=== PATIENT | female | born 1950 | race Caucasian/White ===

== ENCOUNTER → 2016-05-21 | Outpatient (CLI) | payer BC ==
--- NOTE | 2016-05-21 08:46 | CTL ---
EXAMINATION TYPE: CT Low Dose Lung DATE OF EXAM ORDERED: 05/21/2016 8:17 AM HISTORY: 65-year-old female smoker, cough. Lung cancer screening CT DLP: 55.[address] CTDI: 1.7 mGy Automated exposure control for dose reduction was used. SCREENING VISIT: Baseline COMPARISON: Correlation radiographs 05/03/2016 TECHNIQUE: Low dose computed tomography scan was performed through the chest at 1 mm thick sections a nd reconstructed images in the coronal plane at [address] DIAGNOSTIC QUALITY: Satisfactory FINDINGS: Heart is normal size without pericardial effusion. Aorta is normal caliber with conventional arch vessel branching anatomy. A few nonenlarged mediastinal lymph nodes are present measuring up to 6 mm. No thoracic lymphadenopat hy by CT size criteria. Evaluation of the lungs shows mild diffuse bronchial wall thickening and mild centrilobular emphysema . There is biapical pleural parenchymal scarring. Some patchy atelectasis or scarring at the anterior r ight midlung. Additional strandy atelectasis at the posterior lung bases. Additional focal area of s ubpleural groundglass in the lateral left midlung, axial image 109, measures 1.3 cm and has a nonmass like appearance. No consolidation or pleural effusion. No suspicious pulmonary nodule or mass. There is low-density thickening of the left adrenal gland suggesting adrenal hyperplasia. Small hiata l hernia. Bones: No osseous destructive process. IMPRESSION: 1. Lung RADS 2 - benign appearance or behavior -- a less than 2 cm area of groundglass in the lateral left midlung probably a small infectious/inflammatory focus. 2. COPD with mild emphysema. 3. Small hiatal hernia. RECOMMENDATION: 1. Continue annual screening with low-dose CT in 12 months. 2. Smoking cessation.
== END | disposition home or self-care (01) ==
LOC: RADCTMAIN 07:49
PROVIDERS: ATTEND Family Medicine
DX: Z12.2 Encounter for screening for malignant neoplasm of respiratory organs (principal); Z87.891 Personal history of nicotine dependence; J44.9 Chronic obstructive pulmonary disease, unspecified; K44.9 Diaphragmatic hernia without obstruction or gangrene

== ENCOUNTER → 2016-07-23 | Outpatient (CLI) | payer BC | LOC: MMGSC 14:36 | PROVIDERS: ATTEND Family Medicine | DX: N39.0 Urinary tract infection, site not specified (principal) | CPT/HCPCS: 87077; 87086; 87186 ==

== ENCOUNTER 2017-04-14 09:08 | Day surgery (SDC) | payer BC ==
[~2017-04-14 09:08] MED LIST: LACTATED RINGERS 1,000 ML IV SCH
[2017-04-14 09:32] VITALS: RESP 16; TEMP 97.9
[2017-04-14] MEDS ORDERED: LIDOCAINE 1% 20 ML VIAL (10MG/ML) FOR IV START INTRADERMA ONE (09:38)
[2017-04-14] MEDS ORDERED: PROPOFOL 10 MG/ML 20 ML VIAL IV ONE (10:24)
--- NOTE | 2017-04-14 10:45 | P.PCN ---
Date of Procedure: 04/14/17 Procedure(s) Performed: BRIEF HISTORY: Patient is a 66-year-old pleasant white female, scheduled for an elective colonoscopy as a part of screening for colorectal neoplasia. She was recently noted to have a positive cologard test. PROCEDURE PERFORMED: Colonoscopy. PREOPERATIVE DIAGNOSIS: Screening for colon cancer IV sedation per Anesthesia. PROCEDURE: After informed consent was obtained, the patient, was brought into the endoscopy unit. IV sedation was administered by Anesthesia under continuous monitoring. Digital rectal examination was normal. Initially the Olympus CF- 160 flexible video colonoscope was then inserted in the rectum, gradually advanced into the cecum without any difficulty. Careful examination was performed as the scope was gradually being withdrawn. Ileocecal valve and the appendiceal orifice were visualized and appeared normal. Prep was excellent. Mucosa of the cecum, ascending colon, transverse colon, descending colon, sigmoid colon, and rectum appeared normal. Retroflexion was performed in the rectum and small internal hemorrhoids were seen. The patient tolerated the procedure well. IMPRESSION: Normal-appearing colon from rectum to cecum with no evidence of colorectal neoplasia. Small internal Hemorrhoids. RECOMMENDATIONS: Findings of this examination were discussed with the patient as well as her family. She was advised to have a repeat screening colonoscopy in 10 years..
[2017-04-14 11:30] VITALS: BP 122/70; PULSE 79
== END 2017-04-14 11:33 | disposition home or self-care (01) ==
LOC: ORWHC2ENDO 09:08
PROVIDERS: ATTEND Internal Medicine Gastroenterology
DX: Z12.11 Encounter for screening for malignant neoplasm of colon (principal); K64.8 Other hemorrhoids; J44.9 Chronic obstructive pulmonary disease, unspecified; Z79.1 Long term (current) use of non-steroidal anti-inflammatories (NSAID); Z79.51 Long term (current) use of inhaled steroids; Z79.899 Other long term (current) drug therapy; Z88.2 Allergy status to sulfonamides; F17.210 Nicotine dependence, cigarettes, uncomplicated
CPT/HCPCS: J2704; G0121; 45378

== ENCOUNTER → 2020-07-15 | Outpatient (CLI) | payer MEDICARE ==
[2020-07-15 07:34] VITALS: BP 174/79; PULSE 85; RESP 18; TEMP 98
--- NOTE | 2020-07-15 08:22 | P.GSHP ---
History of Present Illness H&P Date: 07/15/20 Chief Complaint: Left breast invasive ductal carcinoma Yissel is a 69-year-old white female seen in consultation for Dr. Ulloa regarding an ultrasound-guided core biopsy of the left breast which was positive for invasive ductal carcinoma. The lesion is approximately 1.2 cm in size. It is ER/LA positive and HER-2 negative. Yissel had a computed tomography scan done for surveillance secondary to the fact that she smokes 1 pack per day for 57 years. On the computed tomography scan an incidental finding of a lesion in the left breast was noted. She does not feel any lumps masses or nodules in either breast. The patient subsequently had a bilateral mammogram performed which revealed a lesion in the 2 o'clock position of the left breast. An ultrasound core biopsy was performed which was positive for invasive ductal carcinoma. Her last bilateral mammogram had been in approximately 2017. The patient is not complaining of any pain in her breast. She is not complaining of any nipple discharge or skin changes. She has not had any recent trauma or infection in the breast. No other lesions of concern were identified on the chest CT. The patient is noted to have an area in the left lung field which has been noted since 2017 and being followed. The patient does state approximately 50 years ago after attempting to breast-feed her first child she did get a mastitis in the left breast. She has not had any problems since that time. She had a right breast biopsy in the past which was benign. Caffeine: One cup of coffee per day Nicotine: 1 pack per day Chocolate:occasional hormones: none, stopped 20 years ago Family History: mother: lung, and brain brother: colon sister: lung Hormonal History: menarche: 12 , breast fed: no, age at first : 17 menopause: partial hysterectomy for pre-cancer at 30 BCP: none hormones: short time less than 1 year Surgical History: Partial hysterectomy at 30 Cyst removed from right faith Medical history: arthritis Inhaler for breathing/ COPD Social History; smoke: 1 pack per day for approximately 57 years Alcohol: Negative Drugs: Negative - Constitutional Constitutional: Denies chills, Denies fever - EENT Eyes: denies blurred vision, denies pain Ears: deny: decreased hearing, tinnitus Ears, nose, mouth and throat: Denies headache, Denies sore throat - Breasts Breasts: bilateral: as per HPI - Cardiovascular Cardiovascular: Reports shortness of breath, Denies chest pain - Respiratory Comment: smoker: 1 PPD for 57 years - Gastrointestinal Gastrointestinal: Denies abdominal pain, Denies diarrhea, Denies nausea, Denies vomiting - Genitourinary (Female) Genitourinary: Denies dysuria, Denies hematuria - Menstruation Menstruation: Reports post hysterectomy - Musculoskeletal Comment: arthritis - Integumentary Integumentary: Denies pruritus, Denies rash - Neurological Neurological: Denies numbness, Denies weakness - Psychiatric Psychiatric: Reports anxiety, Reports depression - Endocrine Endocrine: Denies fatigue, Denies weight change - Hematologic/Lymphatic Comment: none - Allergic/Immunologic Allergic/Immunologic: Reports as per HPI Past Medical History Past Medical History: COPD, Osteoarthritis (OA) Additional Past Medical History / Comment(s): RECENT BRONCHITIS. History of Any Multi-Drug Resistant Organisms: None Reported Past Surgical History: Breast Surgery, Hysterectomy Additional Past Surgical History / Comment(s): BOTH BREAST BX-NEG. Past Anesthesia/Blood Transfusion Reactions: No Reported Reaction Past Psychological History: No Psychological Hx Reported Past Alcohol Use History: Occasional Additional Past Alcohol Use History / Comment(s): SMOKED SINCE 13, 1 PPD. Past Drug Use History: None Reported Medications and Allergies Home Medications Medication Instructions Recorded Confirmed Type Albuterol Inhaler (Mhu) [Ventolin 1 puff INHALATION DIRECTED PRN 04/12/17 07/15/20 History Hfa Inhaler] Ibuprofen [Motrin] 400 mg PO Q6HR PRN 07/15/20 07/15/20 History Naproxen 250 mg PO DAILY PRN 07/15/20 07/15/20 History Umeclidinium [place] [Incruse 1 puff INHALATION DAILY 07/15/20 07/15/20 History Ellipta] Allergies Allergy/AdvReac Type Severity Reaction Status Date / Time Sulfa (Sulfonamide Allergy Unknown Verified 07/15/20 07:29 Antibiotics) Childhood Surgical - Exam BMI 25.4 - General moderate distress - Eyes normal ocular movement - ENT normal pinna, normal nares - Neck no masses, trachea midline - Respiratory normal expansion, normal respiratory effort bilateral: wheezing - Cardiovascular Rhythm: regular Heart Sounds: normal: S1, S2 - Abdomen Abdomen: soft - Integumentary normal turgor - Neurologic no disoriented, no combative - Musculoskeletal normal gait, normal posture - Psychiatric oriented to time, oriented to person, oriented to place, speech is normal, memory intact Breast Exam: BRA: 34D inspection: bilateral grade 2 ptosis, right breast smaller than left breast, ecchymosis upper outer quadrant left breast related to recent core biopsy palpation: right breast: Multi-positional exam fibrocystic changes, no dominant masses or n odules of concern Right axilla: No adenopathy of concern Left breast: Multiple positional exam fibrocystic changes, achymosis upper outer quadrant with hematoma/palpable fullness which may represent the lesion Left axilla: No adenopathy of concern Results Mammogram/ultrasound/computed tomography scan reviewed with radiology The patient was noted to have a lesion in the left lateral lung which appears to be present since 2017 and recommendation is for close surveillance following with another computed tomography scan in 1 year In the left breast at the 2 o'clock position is a spiculated lesion for which biopsy was positive for invasive ductal carcinoma Assessment and Plan Assessment: Impression: 1. Stage IA invasive ductal carcinoma left breast 2. Nicotine dependence/COPD 3. Computed tomography scan of the chest with questionable change in the left lateral aspect recommend close surveillance 4. Anxiety/depression 5. Arthritis Plan: 1. Patient's case to be presented at tumor board 2. Patient wishes for a lumpectomy rather than a mastectomy 3. Medical clearance from Dr. Lawrence 4. Needle localization lumpectomy, sentinel node injection, sentinel node biopsy, possible axillary node dissection 5. Patient encouraged to stop smoking 6. Patient instructed to stop Motrin 1 week prior to surgery Risk and benefits of the procedure were discussed with the patient. Option of mastectomy plus or minus reconstruction versus lumpectomy was discussed patient with perforated have a lumpectomy. Risks include but are not limited to bleeding, infection, reaction to the anesthetic. Possibility of a positive margin which would require further resection was also discussed. Additionally risk of with edema or decreased sensation to the interim was discussed. Patient and her daughter understand and wish to proceed. CC: Dr. Alvarez
== END | disposition home or self-care (01) ==
LOC: WWCWWP 07:19
PROVIDERS: ATTEND Surgery
DX: C50.912 Malignant neoplasm of unspecified site of left female breast (principal); F17.210 Nicotine dependence, cigarettes, uncomplicated; F32.9 Major depressive disorder, single episode, unspecified; F41.9 Anxiety disorder, unspecified; J44.9 Chronic obstructive pulmonary disease, unspecified; M19.90 Unspecified osteoarthritis, unspecified site; Z17.0 Estrogen receptor positive status [ER+]

== ENCOUNTER → 2020-07-29 | Day surgery (SDC) | payer MEDICARE ==
[2020-07-24 09:02] VITALS: BMI 24.8
[~2020-07-29] MED LIST changes: +ALPRAZolam 0.25 MG TAB ONE; +ALPRAZolam 0.25 MG TAB PO ONE; +DEXAMETHASONE SOD PHOSPHATE 4 MG/ML 1 ML VIAL IV ONE; +HEPARIN SODIUM,PORCINE 5,000 UNIT/ML 1 ML VIAL ONE; +HEPARIN SODIUM,PORCINE/PF 5,000 UNIT/0.5 ML SYRINGE SQ PRN; +HYDROcodone/APAP 5-325MG 1 EACH TAB ONE; +HYDROcodone/APAP 5-325MG 1 EACH TAB PO ONE; +LACTATED RINGERS 1,000 ML IV ONE; +LIDOCAINE 1% INJ 10MG/ML (20 ML MDV) ONE; +LIDOCAINE 1% INJ 10MG/ML (20 ML MDV) SQ ONE; +METHYLENE BLUE 10 MG/ML (10 ML VIAL) MISCELLANE ONE; +MIDAZOLAM 2 MG/2 ML VIAL IV PRN; +MIDAZOLAM 2 MG/2 ML VIAL ONE; +ONDANSETRON 4 MG/2 ML VIAL IVP ONE; +PHENYLEPHRINE-0.9% NACL SYG 1,000 MCG/10 ML SYRINGE ONE; +PROPOFOL 10 MG/ML 20 ML VIAL IV ONE; +Pre Op ABX Message 1 EACH MISC MISCELLANE ONE; +SUCCINYLCHOLINE CHLORIDE 100 MG/5 ML SYR IV ONE; +fentaNYL (PF) 50 MCG/ML 2 ML AMP ONE
[2020-07-29 10:30] LABS: Glucose,Whole Blood 126 mg/dL (75-99)
--- NOTE | 2020-07-29 10:32 | P.NAPBC ---
NAPBC Queries - NAPBC Queries Was patient's case review presented at [facility] tumor board? If no, comment.: Yes Was patient's pathology reviewed at [facility]? If no, comment.: Yes Was breast conservation surgery offered? If no, comment.: Yes Was sentinel node biopsy offered? If no, comment.: Yes Was diagnosis confirmed by percutaneous core biopsy? If no, comment.: Yes Is patient mastectomy patient?: No Was a preop referral to reconstructive surgeon offered?: No Clinical Stage: stage IA
--- NOTE | 2020-07-29 12:40 | NM ---
EXAMINATION TYPE: NM sentinel node injection DATE OF EXAM: 07/29/2020 COMPARISON: NONE INDICATION: Abnormal mammogram. Informed consent was obtained. A timeout was performed. The area around the left nipple was cleansed with alcohol. In a single dose, a total of 485 uCi Dedrick hnetium 99m Tilmanocept was injected. The patient tolerated the procedure very well. IMPRESSIONS: 1. Successful injection for sentinel node evaluation.
--- NOTE | 2020-07-29 14:22 | P.OP ---
Date of Procedure: 07/29/20 Preoperative Diagnosis: Left breast invasive ductal carcinoma/stage I Postoperative Diagnosis: Same Procedure(s) Performed: [place] node biopsy, lymphatic mapping, lumpectomy with margins, onco-plastic tissue transfer 54 cm Anesthesia: EDWIGEA Surgeon: Maryellen Flanagan Estimated Blood Loss (ml): 14 IV fluids (ml): 500 Pathology: other (Breast tissue, axillary contents) Condition: stable Disposition: same day Indications for Procedure: Biopsy-proven left breast cancer Operative Findings: Dense breast tissue Description of Procedure: Yissel is a 69-year-old white female who was diagnosed with a stage I left breast cancer. She has opted for lumpectomy and sentinel node biopsy/ possible axillary node dissection. The patient was first seen in the radiology department where periareolar injec tion of radioactive substance was performed. The patient also had needle localization of the area of cancer in the left breast. The patient was then brought to the operative suite and following induction of anesthesia the neoprobe was used to interrogate the axilla. No increased radioactivity was identified. Therefore 5 mL of half-strength methylene blue was injected in the periareolar region and the breast was massaged for 3 minutes. Following this the breast and axilla were prepped and draped in a sterile fashion. An incision was made in the skin of the axilla and carried into the axillary tissue. Using the shari- probe one lymph node but with minimal radioactivity was identified. No other radioactive or blue nodes were noted. The background count was 0. The lower level axillary tissue was removed with the lymph node of concern. No other adenopathy was palpable. Careful dissection was performed maintaining hemostasis using the Harmonic scalpel as well as ligating any vessels of concern. The wound was well irrigated. We assured that hemostasis was attained. The subcutaneous tissue was closed using 3-0 Vicryl suture. The skin was closed using 4-0 Monocryl. The breast was then approached. An incision was made near the insertion site of the needle. The shaft was identified. Surrounding tissue was excised. The specimen was painted for orientation. Specimen was sent to radiology and radiographs revealed that the area of concern had been removed. Anteriorly skin was taken. Posteriorly dissection was carried out to the pectoralis major muscle. Titanium clips were placed in the cavity. Superiorly breast tissue 6 x 3 cm was mobilized and inferiorly breat tissue 6 x 3 cm were mobilized. The defect itself was approximately 6 x 3 cm. The total tissue mobilized was 54 cm. The pillars of tissue were brought together using 3-0 Vicryl suture. Subcutaneous tissue was closed using 3-0 Vicryl suture. The subcuticular skin suture was placed using 4-0 monocryl. Steri-Strips were placed. All instrument and sponge counts were correct at the end of the case. Patient tolerated the procedure in stable condition.
--- NOTE | 2020-07-29 14:24 | P.DS ---
Providers Attending physician: Maryellen Flanagan Primary care physician: Sugey Bermeo Plan - Discharge Summary Discharge Rx Participant: No New Discharge Prescriptions: No Action Albuterol Inhaler (Mhu) [Ventolin Hfa Inhaler] 1 puff INHALATION DIRECTED PRN PRN Reason: Shortness Of Breath Naproxen 250 mg PO DAILY PRN PRN Reason: Pain hydrOXYzine HCL 25 mg PO HS Umeclidinium [place] [Incruse Ellipta] 1 puff INHALATION DAILY Ibuprofen [Motrin] 400 mg PO Q6HR PRN PRN Reason: Pain Atorvastatin [Lipitor] 10 mg PO DAILY Discharge Medication List Albuterol Inhaler (Mhu) [Ventolin Hfa Inhaler] 1 puff INHALATION DIRECTED PRN 04/12/17 [History] Ibuprofen [Motrin] 400 mg PO Q6HR PRN 07/15/20 [History] Naproxen 250 mg PO DAILY PRN 07/15/20 [History] Umeclidinium [place] [Incruse Ellipta] 1 puff INHALATION DAILY 07/15/20 [History] Atorvastatin [Lipitor] 10 mg PO DAILY 07/24/20 [History] hydrOXYzine HCL 25 mg PO HS 07/24/20 [History] Follow up Appointment(s)/Referral(s): Maryellen Flanagan MD [STAFF PHYSICIAN] - 1 Week Activity/Diet/Wound Care/Special Instructions: Do not drive for 24 hours after discharge May shower after 48 hours Wear bra at all times Discharge Disposition: HOME SELF-CARE
[2020-07-29 14:37] VITALS: TEMP 97.1
[2020-07-29] MEDS: HYDROmorphone 0.5 MG/0.5 ML SYRINGE IVP PRN ×3 (14:45→15:07)
[2020-07-29 15:43] LABS: Glucose,Whole Blood 156 mg/dL (75-99)
[2020-07-29 15:49] VITALS: RESP 17
[2020-07-29 16:02] VITALS: BP 165/75; PULSE 88
--- NOTE | 2020-08-01 07:31 | MM ---
EXAMINATION TYPE: MG pre op needle loc LT DATE OF EXAM: 07/29/2020 COMPARISON: 07/03/2020 outside mammogram CLINICAL HISTORY: Abnormal mammogram TECHNIQUE: Needle localization with wire placement and surgical excision of area of concern in the left breast. FINDINGS: The procedure of needle localization with wire placement for surgical excision was explained to the patient. Risk, benefits, and alternatives were discussed. An informed consent was then obtained. A timeout was performed. The overlying skin was prepped and draped in usual sterile fashion. Lidocaine 1% was used as anesthetic into the skin and subcutaneous tissue up to the level of area of concern. A 5 cm needle was used. This was placed via a lateral approach under mammographic guidance. Subsequent 90 degrees mammogram show the needle to be in satisfactory position relative to the targeted area. The wire was placed through the needle and the needle was withdrawn. The wire was fixed to patient's skin. Images were marked for surgeon in reviewed the surgeon in person prior to surgery. The patient tolerated the procedure well without any immediate complication. Specimen: The wire and the targeted mass and surgical clip are identified within the specimen mammogram. IMPRESSION: 1. Successful wire localization and excision. Recommendations: 1. Recommendations are pending pathology results. Pathology Results: Malignant A. LEFT AXILLARY LYMPH NODE, BIOPSY: Three lymph nodes negative for metastasis. B. AXILLARY TISSUE: Two lymph node negative for metastasis. C. SENTINEL LYMPH NODE, BIOPSY: Lymph node negative for metastasis. CK7 and CAROLIN immunoperoxidase stains are confirmatory (controls appropriate). D. LEFT BREAST LUMPECTOMY: Invasive moderately differentiated ductal carcinoma (Grade 2) and Grade 2 DCIS. Invasive carcinoma focally involves the anterior margin, all other margins negative. Margins negative for DCIS. See Surgical Pathology Cancer Case Summary and Comment. E. NEW ANTERIOR MARGIN, EXCISION: Benign skin and subcutaneous tissue. Recommendation Surgical consult of the left breast. NIAD
== END | disposition home or self-care (01) ==
LOC: OR 09:46
PROVIDERS: ATTEND Surgery
DX: C50.912 Malignant neoplasm of unspecified site of left female breast (principal); Z80.1 Family history of malignant neoplasm of trachea, bronchus and lung; Z80.8 Family history of malignant neoplasm of other organs or systems; Z80.0 Family history of malignant neoplasm of digestive organs; Z90.710 Acquired absence of both cervix and uterus; M19.90 Unspecified osteoarthritis, unspecified site; J44.9 Chronic obstructive pulmonary disease, unspecified; Z98.890 Other specified postprocedural states; F17.210 Nicotine dependence, cigarettes, uncomplicated; Z79.1 Long term (current) use of non-steroidal anti-inflammatories (NSAID); Z79.899 Other long term (current) drug therapy; Z88.2 Allergy status to sulfonamides
CPT/HCPCS: 19301; 38525; 88305; 88342; 88307; 88341; 76098; 38792; A9520; J2250; J1644; J1100; J2405; J2001; Q9968; J3010; J2370; J0330; J2704; J1170

== ENCOUNTER → 2021-04-09 | Outpatient (CLI) | payer MEDICARE ==
[2021-04-09 11:45] VITALS: BP 132/76; PULSE 85; RESP 18; TEMP 97.6
--- NOTE | 2021-04-09 12:02 | P.PN ---
Subjective Progress Note Date: 04/09/21 Principal diagnosis: left breast stage IA invasive ductal cancer Yissel is a 70 year old white female seen in consultation last year for Dr. Ulloa regarding an ultrasound-guided core biopsy of the left breast which was positive for invasive ductal carcinoma. The lesion is approximately 1.2 cm in size. It is ER/[place] positive and HER-2 negative. Yissel had a computed tomography scan done for surveillance secondary to the fact that she smokes 1 pack per day for 57 years. On the computed tomography scan an incidental finding of a lesion in the left breast was noted. She does not feel any lumps masses or nodules in either breast. The patient subsequently had a bilateral mammogram performed which revealed a lesion in the 2 o'clock position of the left breast. An ultrasound core biopsy was performed which was positive for invasive ductal carcinoma. Her last bilateral mammogram had been in approximately 2017. The patient was not complaining of any pain in her breast. She was not complaining of any nipple discharge or skin changes. She had not had any recent trauma or infection in the breast. No other lesions of concern were identified on the chest CT. The patient is noted to have an area in the left lung field which has been noted since 2017 and being followed. The patient does state approximately 50 years ago after attempting to breast-feed her first child she did get a mastitis in the left breast. She has not had any problems since that time. She had a right breast biopsy in the past which was benign. 04-09-21 Patient had a left breast lumpectomy and sentinel node biopsy on 5420. All margins were negative that the lesion was 1.4 cm in size. [place] lymph nodes were negative as well. She was seen by medical oncology. She did not have any chemotherapy. She is on anestrazole. She completed radiation therapy. She has not had a mammogram since her surgery. She does complain of soreness to the touch on her left breast. No new lumps, masses or nodules. The patient was also noted asymmetry between the breast with the left breast having less ptosis than the right breast. Caffeine: One cup of coffee per day Nicotine: 1 pack per day; now down to 1/2 PPD Chocolate:occasional hormones: none, stopped 20 years ago Family History: mother: lung, and brain brother: colon sister: lung Hormonal History: menarche: 12 , breast fed: no, age at first : 17 menopause: partial hysterectomy for pre-cancer at 30 BCP: none hormones: short time less than 1 year Surgical History: Partial hysterectomy at 30 Cyst removed from right adventist left lumpectomy and SNB Medical history: arthritis Inhaler for breathing/ COPD Social History; smoke: 1 pack per day for approximately 57 years Alcohol: Negative Drugs: Negative - Constitutional Constitutional: Denies chills, Denies fever - EENT Eyes: denies blurred vision, denies pain Ears: deny: decreased hearing, tinnitus Ears, nose, mouth and throat: Denies headache, Denies sore throat - Breasts Breasts: bilateral: as per HPI - Cardiovascular Cardiovascular: Reports shortness of breath, Denies chest pain - Respiratory Comment: smoker: 1 PPD for 58 years - Gastrointestinal Gastrointestinal: Denies abdominal pain, Denies diarrhea, Denies nausea, Denies vomiting - Genitourinary (Female) Genitourinary: Denies dysuria, Denies hematuria - Menstruation Menstruation: Reports post hysterectomy - Musculoskeletal Comment: arthritis - Integumentary Integumentary: Denies pruritus, Denies rash - Neurological Neurological: Denies numbness, Denies weakness - Psychiatric Psychiatric: Reports anxiety, Reports depression - Endocrine Endocrine: Denies fatigue, Denies weight change - Hematologic/Lymphatic Comment: none - Allergic/Immunologic Allergic/Immunologic: Reports as per HPI Objective - Vital Signs Vital signs: Vital Signs Temp 97.6 F 04/09/21 11:42 Pulse 85 04/09/21 11:42 Resp 18 04/09/21 11:42 BP 132/76 04/09/21 11:42 Pulse Ox 96 04/09/21 11:42 Intake & Output 04/08/21 04/09/21 04/09/21 18:59 06:59 18:59 Weight 63.503 kg - Constitutional General appearance: Present: cooperative - EENT Eyes: Present: EOMI ENT: Present: hearing grossly normal - Neck Neck: Present: normal ROM - Respiratory Respiratory: bilateral: wheezing - Cardiovascular Rhythm: regular Heart sounds: normal: S1, S2 - Gastrointestinal General gastrointestinal: Present: soft - Integumentary Integumentary: Present: normal turgor - Musculoskeletal Musculoskeletal: Present: gait normal - Psychiatric Psychiatric: Present: A&O x's 3, appropriate affect, intact judgment & insight - Additional findings Additional findings: Breast Exam:36D inspection: right breast grade 3 ptosis; asymmetry secondary to prior surgery, left breast grade 2 ptosis palpation: right breast: Multi-positional exam fibrocystic changes no discrete dominant masses or nodules of concern Right axilla: No adenopathy of concern Left breast: Multiple positional exam postop and postsurgical changes noticed 3 dominant masses or notches of concern well-healed scar from prior surgery Left axilla: No adenopathy of concern Assessment and Plan Assessment: Impression: Patient status post left breast lumpectomy radiation therapy stage IA invasive ductal carcinoma no evidence of recurrence 2. Patient on anastrozole 3. Asymmetry of the nipple areolar complexes secondary to prior cancer surgery Plan: 1. Bilateral mammogram in June with physician exam at that time 2. Consider mastopexy 3. Continue anastrozole follow-up with medical oncology CC: Dfr. Ulloa
== END ==
LOC: WWCWWP 11:17
PROVIDERS: ATTEND Surgery
DX: Z08 Encounter for follow-up examination after completed treatment for malignant neoplasm (principal); N64.89 Other specified disorders of breast; F17.210 Nicotine dependence, cigarettes, uncomplicated; Z85.3 Personal history of malignant neoplasm of breast; Z98.890 Other specified postprocedural states; Z79.811 Long term (current) use of aromatase inhibitors; Z88.2 Allergy status to sulfonamides

== ENCOUNTER → 2021-04-16 | Outpatient (CLI) | payer MEDICARE ==
--- NOTE | 2021-04-16 16:29 | BD ---
EXAMINATION TYPE: Axial Bone Density DATE OF EXAM: 04/16/2021 COMPARISON: NONE CLINICAL HISTORY: Height: 62 Weight: 138.0 FRAX RISK QUESTIONS: Alcohol (3 or more units per day): no Family History (Parent hip fracture): no Glucocorticoids (More than 3mos): no (Ex: prednisone, prednisolone, methylprednisolone, dexamethasone, and hydrocortisone). History of Fracture in Adulthood: no Secondary Osteoporosis: 1. Type 1 Diabetes: no 2. Hyperthyroidism: no 3. Menopause before 45:yes 4. Malnutrition: no 5. Chronic liver disease: no Rheumatoid Arthritis: no Current Tobacco Use: yes RISK FACTORS HISTORY OF: Surgery to Spine/Hip(right/left)/Wrist (right/left): no Family History of Osteoporosis: no Active: yes Diet low in dairy products/other sources of calcium: no Postmenopausal woman: yes Lost more than 2 inches in height since high school: no MEDICATIONS: diabetic meds Additional History: EXAM MEASUREMENTS: Bone mineral densitometry was performed using the [employer] System. Bone mineral density as measured about the Lumbar spine is: ----- L1-L4(G/cm2): 0.864 T Score Values are as follows: ----- L2: -3.3 ----- L3: -2.4 ----- L4: -2.7 ----- L1-L4: -2.6 Bone mineral density : baseline Bone mineral density about the R hip (g/cm2): 0.717 Bone mineral density about the L hip (g/cm2): 0.745 T Score values are as follows: -----R Neck: -2.3 -----L Neck: -2.1 -----R Total: -1.8 -----L Total: -1.3 Bone mineral density : baseline IMPRESSION: Osteoporosis (T Score less than -2.5). There is increased fracture risk and therapy is usually indicated based on age. Re-Screen 1-2 years. NOTE: T-SCORE=SD OF THE YOUNG ADULT MEAN.
== END | disposition home or self-care (01) ==
LOC: RADBDWWP 12:36
PROVIDERS: ATTEND Internal Medicine Hematology & Oncology
DX: M81.0 Age-related osteoporosis without current pathological fracture (principal); Z79.890 Hormone replacement therapy
CPT/HCPCS: 77080

== ENCOUNTER → 2021-08-12 | Outpatient (CLI) | payer MEDICARE ==
--- NOTE | 2021-08-12 13:38 | MM ---
Reason for Exam: Additional evaluation requested from prior study. Last mammogram was performed 1 year(s) and 1 month(s) ago. Patient History: Menarche at age 12. First Full-Term at age 17. Hysterectomy at age 30. Postmenopausal. Breast cancer, left, age 69. Previous chest radiation therapy at age 69. 07/03/2020, US breast needle core LT - 2 on the Left side. 07/29/2020, Lumpectomy on the Left side. 07/29/2020, Malignant Core Biopsy on the left side. Film Views: Bilateral CC views were taken. Bilateral MLO views were taken. Prior Study Comparison: 06/20/2020 Left US breast LT, Unknown. 06/20/2020 Bilateral MG 3D diag mammo w/cad WHITNEY - 2, Unknown. 07/03/2020 Left MG diagnostic mammo LT wo CAD., Unknown. Tissue Density: There are scattered fibroglandular densities. Findings: Analyzed By CAD. Prior lumpectomy postsurgical changes are in the upper outer aspect left breast. Left breast is smaller than the right. Benign calcifications are within the bilateral breasts. There appears to be some chronic nodularity within the anterior left breast present previously. Overall Assessment: Benign, BI-RAD 2 Management: Diagnostic Mammogram of both breasts in 1 year. A clinical breast exam by your physician is recommended on an annual basis and results should be correlated with mammographic findings. This exam should not preclude additional follow-up of suspicious palpable abnormalities. Results were given to the patient verbally at the time of exam.
== END | disposition home or self-care (01) ==
LOC: RADMAMWWP 12:46
PROVIDERS: ATTEND Surgery
DX: Z08 Encounter for follow-up examination after completed treatment for malignant neoplasm (principal); Z85.3 Personal history of malignant neoplasm of breast
CPT/HCPCS: 77066; G0279; 77062

== ENCOUNTER → 2021-08-20 | Outpatient (CLI) | payer MEDICARE ==
--- NOTE | 2021-08-20 17:25 | P.PN ---
Subjective Progress Note Date: 08/20/21 Principal diagnosis: left breast stage IA invasive ductal cancer Yissel is a 70-year-old white female seen in consultation for Dr. Ulloa regarding an ultrasound-guided core biopsy of the left breast which was positive for invasive ductal carcinoma in 2020. The lesion was approximately 1.2 cm in size. It was ER/[place] positive and HER-2 negative. Yissel had a computed tomography scan done for surveillance secondary to the fact that she smokes 1 pack per day for 57 years. On the computed tomography scan an incidental finding of a lesion in the left breast was noted. She did not feel any lumps masses or nodules in either breast. The patient subsequently had a bilateral mammogram performed which revealed a lesion in the 2 o'clock position of the left breast. An ultrasound core biopsy was performed which was positive for invasive ductal carcinoma. Her last bilateral mammogram prior to that had been in approximately 2016. She subsequently underwent a left breast lumpectomy and sentinel node biopsy on 5420. The lesion was a T1 N0 M0 G2 ER positive [place] positive HER-2 negative stage IA cancer. She completed radiation therapy on in September 2020. She is presently on aarimidex and tolerating it well. She did not have any chemotherapy. The patient most recently had a bilateral mammogram on . This was benign BIRADS 2. The patient is not complaining of any pain in her breast. She is not complaining of any nipple discharge or skin changes. She has not had any recent trauma or infection in the breast. Caffeine: One cup of coffee per day Nicotine: 1 pack per day Chocolate:occasional hormones: none, stopped 20 years ago Family History: mother: lung, and brain brother: colon sister: lung Hormonal History: menarche: 12 , breast fed: no, age at first : 17 menopause: partial hysterectomy for pre-cancer at 30 BCP: none hormones: short time less than 1 year Surgical History: Partial hysterectomy at 30 Cyst removed from right [place] Medical history: arthritis Inhaler for breathing/ COPD Social History; smoke: 1 pack per day for approximately 57 years Alcohol: Negative Drugs: Negative - Constitutional Constitutional: Denies chills, Denies fever - EENT Eyes: denies blurred vision, denies pain Ears: deny: decreased hearing, tinnitus Ears, nose, mouth and throat: Denies headache, Denies sore throat - Breasts Breasts: bilateral: as per HPI - Cardiovascular Cardiovascular: Reports shortness of breath, Denies chest pain - Respiratory Comment: smoker: 1 PPD for 57 years - Gastrointestinal Gastrointestinal: Denies abdominal pain, Denies diarrhea, Denies nausea, Denies vomiting - Genitourinary (Female) Genitourinary: Denies dysuria, Denies hematuria - Menstruation Menstruation: Reports post hysterectomy - Musculoskeletal Comment: arthritis - Integumentary Integumentary: Denies pruritus, Denies rash - Neurological Neurological: Denies numbness, Denies weakness - Psychiatric Psychiatric: Reports anxiety, Reports depression - Endocrine Endocrine: Denies fatigue, Denies weight change - Hematologic/Lymphatic Comment: none - Allergic/Immunologic Allergic/Immunologic: Reports as per HPI Past Medical History Past Medical History: COPD, Osteoarthritis (OA) Additional Past Medical History / Comment(s): RECENT BRONCHITIS. History of Any Multi-Drug Resistant Organisms: None Reported Past Surgical History: Breast Surgery, Hysterectomy Additional Past Surgical History / Comment(s): BOTH BREAST BX-NEG. Past Anesthesia/Blood Transfusion Reactions: No Reported Reaction Past Psychological History: No Psychological Hx Reported Past Alcohol Use History: Occasional Additional Past Alcohol Use History / Comment(s): SMOKED SINCE 13, 1 PPD. Past Drug Use History: None Reported Objective - Constitutional General appearance: Present: cooperative - EENT Eyes: Present: EOMI ENT: Present: hearing grossly normal - Neck Neck: Present: normal ROM - Respiratory Respiratory: left: wheezing - Cardiovascular Rhythm: regular Heart sounds: normal: S1, S2 - Integumentary Integumentary: Present: normal turgor - Musculoskeletal Musculoskeletal: Present: gait normal - Psychiatric Psychiatric: Present: A&O x's 3, appropriate affect, intact judgment & insight - Additional findings Additional findings: Breast examination: BRA: 34D Palpation: Right breast: Multi-positional exam no dominant masses or nodules of concern Right axilla: No adenopathy of concern Left breast: Multi-positional exam postoperative changes no dominant masses or nodules of concern Left axilla: No adenopathy of concern Assessment and Plan Assessment: Impression: Patient status post left breast lumpectomy and sentinel node biopsy for stage IA invasive ductal carcinoma, no evidence of recurrent cancer Patient presently on an aromatase inhibitor Plan: Bilateral mammogram 1 year Follow up here in 6 months for exam Follow-up with medical oncology CC: Dr. Bermeo
== END ==
LOC: WWCWWP 16:33
PROVIDERS: ATTEND Surgery
DX: Z08 Encounter for follow-up examination after completed treatment for malignant neoplasm (principal); Z85.3 Personal history of malignant neoplasm of breast; Z92.3 Personal history of irradiation; F17.210 Nicotine dependence, cigarettes, uncomplicated; J44.9 Chronic obstructive pulmonary disease, unspecified; M19.90 Unspecified osteoarthritis, unspecified site; Z98.890 Other specified postprocedural states; Z88.2 Allergy status to sulfonamides

== ENCOUNTER 2021-08-31 05:30 | Emergency (ER) | payer MEDICARE ==
[2021-08-31 05:56] LABS: Amorphous Sediment,Urine Rare /hpf; Appearance,Urine Turbid (Clear); Bacteria,Urine Few /hpf; Bilirubin,Urine Negative (Negative); Blood,Urine Large (Negative); Color,Urine Yellow; Glucose,Urine (UA) Negative (Negative); Ketones,Urine 1+ (Negative); Leukocyte Esterase,Urine Large (Negative); Mucus,Urine Few /hpf; Nitrite,Urine Negative (Negative); Protein,Urine 2+ (Negative); RBC,Urine 44 /hpf (0-5); Specific Gravity,Urine 1.015 (1.001-1.035); Squamous Epithelial Cell,Urine 1 /hpf (0-4); Urobilinogen,Urine <2.0 mg/dL (<2.0); WBC,Urine >182 /hpf (0-5)
[2021-08-31] MEDS ORDERED: ACETAMINOPHEN TAB 500 MG TAB PO STA (06:05)
[2021-08-31] MEDS ORDERED: SODIUM CHLORIDE 0.9% 1,000 ML IV ONE (06:05)
[2021-08-31] MEDS ORDERED: PHENAZOPYRIDINE 200 MG TAB PO STA (06:25)
[2021-08-31 06:47] LABS: Albumin 3.1 g/dL (3.5-5.0); Calcium 8.1 mg/dL (8.4-10.2); Potassium 3.4 mmol/L (3.5-5.1); Total Bilirubin 1.3 mg/dL (0.2-1.3); Total Protein 5.3 g/dL (6.3-8.2)
--- NOTE | 2021-08-31 07:25 | ED ---
General Adult HPI - General Chief complaint: Urogenital Stated complaint: Possible UTI Time Seen by Provider: 08/31/21 05:40 Source: patient, EMS, RN notes reviewed Mode of arrival: EMS Limitations: no limitations - History of Present Illness Initial comments: This a 71-year-old female presents emergency Department with chief complaint of urinary frequency, dysuria. Patient states started Tuesday has progressively worsened. Patient did have a fever. Patient states she has extreme pain when she urinates she has bilateral flank pain and discomfort. She states gradual onset of to the pain of her flank. No history kidney stones. Patient denies a ny medications for her fever. Patient denies chest pain, shortness breath. Patient had mild nausea no vomiting - Related Data Home Medications Medication Instructions Recorded Confirmed Umeclidinium [place] [Incruse 1 puff INHALATION RT-DAILY 07/15/20 08/31/21 Ellipta] Atorvastatin [Lipitor] 10 mg PO DAILY 07/24/20 08/31/21 hydrOXYzine HCL 25 mg PO BID PRN 07/24/20 08/31/21 Anastrozole [Arimidex] 1 mg PO DAILY 04/09/21 08/31/21 Cholecalciferol [Vitamin D3 (25 50 mcg PO DAILY 04/09/21 08/31/21 Mcg = 1000 Iu)] Albuterol Sulfate [Albuterol 1 - 2 puff PO Q6H PRN 08/31/21 08/31/21 Sulfate Hfa] Ascorbic Acid [Vitamin C] 500 mg PO DAILY 08/31/21 08/31/21 Calcium Carbonate [Calcium] 600 mg PO DAILY 08/31/21 08/31/21 lisinopriL [Zestril] 2.5 mg PO DAILY 08/31/21 08/31/21 Previous Rx's Medication Instructions Recorded Cephalexin [Keflex] 500 mg PO Q8HR #21 cap 08/31/21 Phenazopyridine [Pyridium] 200 mg PO TID #6 tablet 08/31/21 Allergies Allergy/AdvReac Type Severity Reaction Status Date / Time Sulfa (Sulfonamide Allergy Rash/Hives Verified 08/31/21 07:35 Antibiotics) Review of Systems ROS Statement: Those systems with pertinent positive or pertinent negative responses have been documented in the HPI. ROS Other: All systems not noted in ROS Statement are negative. Past Medical History Past Medical History: Cancer, COPD, Diabetes Mellitus, Hyperlipidemia, Osteoarthritis (OA) Additional Past Medical History / Comment(s): Hx. of Bronchitis, Breast cancer, Diet controlled diabetes. History of Any Multi-Drug Resistant Organisms: None Reported Past Surgical History: Breast Surgery, Hysterectomy Additional Past Surgical History / Comment(s): R breast surgery- benign, cyst removed from cheondoism. Past Anesthesia/Blood Transfusion Reactions: No Reported Reaction Past Psychological History: No Psychological Hx Reported Smoking Status: Current every day smoker Past Alcohol Use History: Occasional Past Drug Use History: None Reported - Past Family History Mother Family Medical History: Cancer Additional Family Medical History / Comment(s): Lung General Exam Limitations: no limitations General appearance: alert, in no apparent distress Head exam: Present: atraumatic, normocephalic, normal inspection Eye exam: Present: normal appearance, PERRL, EOMI. Absent: scleral icterus, conjunctival injection, periorbital swelling ENT exam: Present: normal exam, normal oropharynx, mucous membranes moist Neck exam: Present: normal inspection, full ROM. Absent: tenderness, meningismus, lymphadenopathy Respiratory exam: Present: normal lung sounds bilaterally. Absent: respiratory distress, wheezes, rales, rhonchi, stridor Cardiovascular Exam: Present: normal rhythm, tachycardia, normal heart sounds. Absent: systolic murmur, diastolic murmur, rubs, gallop, clicks GI/Abdominal exam: Present: soft, normal bowel sounds. Absent: distended, tenderness, guarding, rebound, rigid Back exam: Absent: CVA tenderness (R), CVA tenderness (L) Neurological exam: Present: alert, oriented X3 Skin exam: Present: warm, dry, intact, normal color. Absent: rash Course Vital Signs 08/31/21 08/31/21 05:31 06:57 Temperature 101.7 F H 99.1 F Pulse Rate 124 H 92 Respiratory 18 18 Rate Blood Pressure 128/60 109/53 O2 Sat by Pulse 95 96 Oximetry Medical Decision Making - Medical Decision Making Patient does have evidence of urinary tract infection. Patient is febrile, tachycardic upon arrival. Vitals are improved. Patient was given 2 g Rocephin, hydrated will be discharged on oral antibiotics return parameters were discussed. - Lab Data Result diagrams: 08/31/21 06:19 08/31/21 06:19 Lab Results 06/09/1608/31/21 08/31/21 Range/Units 05:30 06:19 06:19 WBC 9.4 (3.8-10.6) k/uL RBC 4.54 (3.80-5.40) m/uL Hgb 13.4 (11.4-16.0) gm/dL Hct 42.3 (34.0-46.0) % MCV 93.1 (80.0-100.0) fL MCH 29.6 (25.0-35.0) pg MCHC 31.8 (31.0-37.0) g/dL RDW 13.5 (11.5-15.5) % Plt Count 165 (150-450) k/uL MPV 9.3 Neutrophils % 93 % Lymphocytes % 2 % Monocytes % 5 % Eosinophils % 0 % Basophils % 0 % Neutrophils # 8.8 H (1.3-7.7) k/uL Lymphocytes # 0.2 L (1.0-4.8) k/uL Monocytes # 0.4 (0-1.0) k/uL Eosinophils # 0.0 (0-0.7) k/uL Basophils # 0.0 (0-0.2) k/uL Sodium 132 L (137-145) mmol/L Potassium 3.4 L (3.5-5.1) mmol/L Chloride 103 (98-107) mmol/L Carbon Dioxide 22 (22-30) mmol/L Anion Gap 7 mmol/L BUN 14 (7-17) mg/dL Creatinine 0.83 (0.52-1.04) mg/dL Est GFR (CKD-EPI)AfAm 81 (>60 ml/min/1.73 sqM) Est GFR (CKD-EPI)NonAf 71 (>60 ml/min/1.73 sqM) Glucose 273 H (74-99) mg/dL Plasma Lactic Acid Vikas (0.7-2.0) mmol/L Calcium 8.1 L (8.4-10.2) mg/dL Total Bilirubin 1.3 (0.2-1.3) mg/dL AST 16 (14-36) U/L ALT 15 (4-34) U/L Alkaline Phosphatase 89 (38-126) U/L Total Protein 5.3 L (6.3-8.2) g/dL Albumin 3.1 L (3.5-5.0) g/dL Urine Color Yellow Urine Appearance Turbid H (Clear) Urine pH 6.0 (5.0-8.0) Ur Specific Alfred 1.015 (1.001-1.035) Urine Protein 2+ H (Negative) Urine Glucose (UA) Negative (Negative) Urine Ketones 1+ H (Negative) Urine Blood Large H (Negative) Urine Nitrite Negative (Negative) Urine Bilirubin Negative (Negative) Urine Urobilinogen <2.0 (<2.0) mg/dL Ur Leukocyte Esterase Large H (Negative) Urine RBC 44 H (0-5) /hpf Urine WBC >182 H (0-5) /hpf Urine WBC Clumps Many H (None) /hpf Ur Squamous Epith Cells 1 (0-4) /hpf Amorphous Sediment Rare H (None) /hpf Urine Bacteria Few H (None) /hpf Urine Mucus Few H (None) /hpf 08/31/21 Range/Units 06:19 WBC (3.8-10.6) k/uL RBC (3.80-5.40) m/uL Hgb (11.4-16.0) gm/dL Hct (34.0-46.0) % MCV (80.0-100.0) fL MCH (25.0-35.0) pg MCHC (31.0-37.0) g/dL RDW (11.5-15.5) % Plt Count (150-450) k/uL MPV Neutrophils % % Lymphocytes % % Monocytes % % Eosinophils % % Basophils % % Neutrophils # (1.3-7.7) k/uL Lymphocytes # (1.0-4.8) k/uL Monocytes # (0-1.0) k/uL Eosinophils # (0-0.7) k/uL Basophils # (0-0.2) k/uL Sodium (137-145) mmol/L Potassium (3.5-5.1) mmol/L Chloride (98-107) mmol/L Carbon Dioxide (22-30) mmol/L Anion Gap mmol/L BUN (7-17) mg/dL Creatinine (0.52-1.04) mg/dL Est GFR (CKD-EPI)AfAm (>60 ml/min/1.73 sqM) Est GFR (CKD-EPI)NonAf (>60 ml/min/1.73 sqM) Glucose (74-99) mg/dL Plasma Lactic Acid Vikas 1.7 (0.7-2.0) mmol/L Calcium (8.4-10.2) mg/dL Total Bilirubin (0.2-1.3) mg/dL AST (14-36) U/L ALT (4-34) U/L Alkaline Phosphatase (38-126) U/L Total Protein (6.3-8.2) g/dL Albumin (3.5-5.0) g/dL Urine Color Urine Appearance (Clear) Urine pH (5.0-8.0) Ur Specific Alfred (1.001-1.035) Urine Protein (Negative) Urine Glucose (UA) (Negative) Urine Ketones (Negative) Urine Blood (Negative) Urine Nitrite (Negative) Urine Bilirubin (Negative) Urine Urobilinogen (<2.0) mg/dL Ur Leukocyte Esterase (Negative) Urine RBC (0-5) /hpf Urine WBC (0-5) /hpf Urine WBC Clumps (None) /hpf Ur Squamous Epith Cells (0-4) /hpf Amorphous Sediment (None) /hpf Urine Bacteria (None) /hpf Urine Mucus (None) /hpf Disposition Clinical Impression: Urinary tract infection Disposition: HOME SELF-CARE Condition: Stable Instructions (If sedation given, give patient instructions): Urinary Tract Infection in Women (ED) Additional Instructions: Please return to the Emergency Department if symptoms worsen or any other concerns. Prescriptions: Cephalexin [Keflex] 500 mg PO Q8HR #21 cap Phenazopyridine [Pyridium] 200 mg PO TID #6 tablet Is patient prescribed a controlled substance at d/c from ED?: No Referrals: Sugey Bermeo MD [Primary Care Provider] - 1-2 days Time of Disposition: 09:06
[2021-08-31 08:33] LABS: Basophils % (A) 0 %; Eosinophils % (A) 0 %; HCT 42.3 % (34.0-46.0); HGB 13.4 gm/dL (11.4-16.0); Lymphocytes # (A) 0.2 k/uL (1.0-4.8); Lymphocytes % (A) 2 %; MCH 29.6 pg (25.0-35.0); MCHC 31.8 g/dL (31.0-37.0); MCV 93.1 fL (80.0-100.0); Mean Platelet Volume 9.3; Monocytes # (A) 0.4 k/uL (0-1.0); Monocytes % (A) 5 %; Neutrophils # (A) 8.8 k/uL (1.3-7.7); Neutrophils % (A) 93 %; Platelet Count 165 k/uL (150-450); RBC 4.54 m/uL (3.80-5.40); RDW 13.5 % (11.5-15.5); WBC 9.4 k/uL (3.8-10.6)
[2021-08-31 09:20] VITALS: BP 91/54; PULSE 82; RESP 20; TEMP 99.3
== END 2021-08-31 09:19 | disposition home or self-care (01) ==
LOC: EC 05:30
DX: N39.0 Urinary tract infection, site not specified (principal); E11.9 Type 2 diabetes mellitus without complications; E78.5 Hyperlipidemia, unspecified; F17.200 Nicotine dependence, unspecified, uncomplicated; Z88.2 Allergy status to sulfonamides
CPT/HCPCS: 36415; 80053; 83605; 85025; 81001; 87040; 87086; 99284; 96365; J0696

== ENCOUNTER → 2021-10-12 | Outpatient (CLI) | payer MEDICARE ==
--- NOTE | 2021-10-12 11:05 | US ---
EXAMINATION TYPE: US kidneys/renal and bladder DATE OF EXAM: 10/12/2021 COMPARISON: NONE CLINICAL HISTORY: N39.0 URINARY TRACT INFECTION, SITE NOT SPECIFIED. EXAM MEASUREMENTS: Right Kidney: 9.9 x 3.7 x 5.1 cm Left Kidney: 9.8 x 4.9 x 4.9 cm Post Void Residual Volume: 16.44 mL Right Kidney: No hydronephrosis or masses seen Left Kidney: Extrarenal pelvis noted. Bladder: wnl Bilateral Jets seen: Yes Normal Post Void Residual: Yes There is no evidence for hydronephrosis at this point in time. No nephrolithiasis is seen. No shelly s are identified. The urinary bladder is anechoic. Bilateral ureteral jets are seen. IMPRESSION: No evidence for obstructive uropathy.
== END | disposition home or self-care (01) ==
LOC: RADUSWWP 10:16
PROVIDERS: ATTEND Family Medicine
DX: N39.0 Urinary tract infection, site not specified (principal)
CPT/HCPCS: 76770

== ENCOUNTER → 2022-04-16 | Outpatient (CLI) | payer MEDICARE ==
[2022-04-16 15:08] VITALS: BP 128/48; PULSE 107; RESP 18; TEMP 98.2
--- NOTE | 2022-04-16 15:20 | P.PN ---
Subjective Progress Note Date: 04/16/22 Principal diagnosis: left breast stage IA invasive ductal cancer left breast stage IA invasive ductal cancer Yissel is a 70-year-old white female seen in consultation for Dr. Ulloa regarding an ultrasound-guided core biopsy of the left breast which was positive for invasive ductal carcinoma in 2020. The lesion was approximately 1.2 cm in size. It was ER/VT positive and HER-2 negative. Yissel had a computed tomography scan done for surveillance secondary to the fact that she smokes 1 pack per day for 57 years. On the computed tomography scan an incidental finding of a lesion in the left breast was noted. She did not feel any lumps masses or nodules in either breast. The patient subsequently had a bilateral mammogram performed which revealed a lesion in the 2 o'clock position of the left breast. An ultrasound core biopsy was performed which was positive for invasive ductal carcinoma. Her last bilateral mammogram prior to that had been in approximately 2016. She subsequently underwent a left breast lumpectomy and sentinel node biopsy on 5420. The lesion was a T1 N0 M0 G2 ER positive VT positive HER-2 negative stage IA cancer. She completed radiation therapy on in September 2020. She is presently on aarimidex and tolerating it well. She did not have any chemotherapy. The patient most recently had a bilateral mammogram 08-12-21. This was benign BIRADS 2. The patient is not complaining of any pain in her breast. She is not complaining of any nipple discharge or skin changes. She has not had any recent trauma or infection in the breast. 04-16-22 She is not complaining of any lumps masses or nodules of concern in either jose a ast. She is taking Anastrazole. Caffeine: One cup of coffee per day Nicotine: 1 pack per day Chocolate:occasional hormones: none, stopped 20 years ago Family History: mother: lung, and brain brother: colon sister: lung Hormonal History: menarche: 12 , breast fed: no, age at first : 17 menopause: partial hysterectomy for pre-cancer at 30 BCP: none hormones: short time less than 1 year Surgical History: Partial hysterectomy at 30 Cyst removed from right [place] Medical history: arthritis Inhaler for breathing/ COPD Social History; smoke: 1 pack per day for approximately 57 years Alcohol: Negative Drugs: Negative - Constitutional Constitutional: Denies chills, Denies fever - EENT Eyes: denies blurred vision, denies pain Ears: deny: decreased hearing, tinnitus Ears, nose, mouth and throat: Denies headache, Denies sore throat - Breasts Breasts: bilateral: as per HPI - Cardiovascular Cardiovascular: Reports shortness of breath, Denies chest pain - Respiratory Comment: smoker: 1 PPD for 57 years - Gastrointestinal Gastrointestinal: Denies abdominal pain, Denies diarrhea, Denies nausea, Denies vomiting - Genitourinary (Female) Genitourinary: Denies dysuria, Denies hematuria - Menstruation Menstruation: Reports post hysterectomy - Musculoskeletal Comment: arthritis - Integumentary Integumentary: Denies pruritus, Denies rash - Neurological Neurological: Denies numbness, Denies weakness - Psychiatric Psychiatric: Reports anxiety, Reports depression - Endocrine Endocrine: Denies fatigue, Denies weight change - Hematologic/Lymphatic Comment: none - Allergic/Immunologic Allergic/Immunologic: Reports as per HPI Past Medical History Past Medical History: COPD, Osteoarthritis (OA) Additional Past Medical History / Comment(s): RECENT BRONCHITIS. History of Any Multi-Drug Resistant Organisms: None Reported Past Surgical History: Breast Surgery, Hysterectomy Additional Past Surgical History / Comment(s): BOTH BREAST BX-NEG. Past Anesthesia/Blood Transfusion Reactions: No Reported Reaction Past Psychological History: No Psychological Hx Reported Past Alcohol Use History: Occasional Additional Past Alcohol Use History / Comment(s): SMOKED SINCE 13, 1 PPD. Past Drug Use History: None Reported Objective - Vital Signs Vital signs: Vital Signs Temp 98.2 F 04/16/22 15:05 Pulse 107 H 04/16/22 15:05 Resp 18 04/16/22 15:05 BP 128/48 04/16/22 15:05 Pulse Ox 98 04/16/22 15:05 FiO2 Intake & Output 04/15/22 04/16/22 04/16/22 18:59 06:59 18:59 Weight 57.606 kg - Constitutional General appearance: Present: cooperative - EENT Eyes: Present: EOMI ENT: Present: hearing grossly normal - Neck Neck: Present: normal ROM - Respiratory Respiratory: bilateral: CTA - Cardiovascular Rhythm: regular Heart sounds: normal: S1, S2 - Gastrointestinal General gastrointestinal: Present: soft - Integumentary Integumentary: Present: normal turgor - Musculoskeletal Musculoskeletal: Present: gait normal - Psychiatric Psychiatric: Present: A&O x's 3, appropriate affect, intact judgment & insight - Additional findings Additional findings: Breast examination: BRA: 34D Palpation: Right breast: Multi-positional exam no dominant masses or nodules of concern Right axilla: No adenopathy of concern Left breast: Multi-positional exam postoperative changes no dominant masses or nodules of concern Left axilla: No adenopathy of concern Assessment and Plan Assessment: Impression: Patient status post left breast lumpectomy and sentinel node biopsy for stage IA invasive ductal carcinoma, no evidence of recurrent cancer Patient presently on an aromatase inhibitor Plan: Bilateral mammogram July 2022 Follow up here in 4 months for exam Follow-up with medical oncology CC: Dr. Bermeo
== END ==
LOC: WWCWWP 14:40
PROVIDERS: ATTEND Surgery
DX: Z85.3 Personal history of malignant neoplasm of breast (principal); J44.9 Chronic obstructive pulmonary disease, unspecified; M19.90 Unspecified osteoarthritis, unspecified site; Z88.2 Allergy status to sulfonamides; F17.200 Nicotine dependence, unspecified, uncomplicated

== ENCOUNTER → 2022-08-16 | Outpatient (CLI) | payer MEDICARE ==
--- NOTE | 2022-08-16 13:18 | MM ---
Reason for Exam: Additional evaluation requested from prior study. Last screening mammogram was performed 12 month(s) ago. Patient History: Menarche at age 12. First Full-Term at age 17. Hysterectomy at age 30. Postmenopausal. Breast cancer, left, age 69. Previous chest radiation therapy at age 69. 07/03/2020, US breast needle core LT - 2 on the Left side. 07/29/2020, Lumpectomy on the Left side. 07/29/2020, Malignant Core Biopsy on the left side. Prior Study Comparison: 06/20/2020 Left US breast LT, Unknown. 06/20/2020 Bilateral MG 3D diag mammo w/cad WHITNEY - 2, Unknown. 07/03/2020 Left MG diagnostic mammo LT wo CAD., Unknown. 08/12/2021 Bilateral MG 3D diag mammo w/cad [facility]NEY, [facility]. Tissue Density: The breast tissue is heterogeneously dense. This may lower the sensitivity of mammography. Findings: Analyzed By CAD. Postsurgical and posttreatment changes left breast with fat necrosis calcifications at the lumpectomy site. Chronic nodularity centrally inner aspect left breast. Scattered benign oil cyst calcifications bilaterally. No significant change from prior exams. Overall Assessment: Benign, BI-RAD 2 Management: Diagnostic Mammogram of both breasts in 1 year. . Results were given to the patient verbally at the time of exam. Patient should continue monthly self-breast exams. A clinical breast exam by your physician is recommended on an annual basis. This exam should not preclude additional follow-up of suspicious palpable abnormalities. Electronically signed and approved by: Kory Christine M.D. Radiologist
== END | disposition home or self-care (01) ==
LOC: RADMAMWWP 12:46
PROVIDERS: ATTEND Surgery
DX: N60.02 Solitary cyst of left breast (principal); N60.01 Solitary cyst of right breast; Z85.3 Personal history of malignant neoplasm of breast; Z78.0 Asymptomatic menopausal state
CPT/HCPCS: 77066; G0279; 77062

== ENCOUNTER → 2022-08-20 | Outpatient (CLI) | payer MEDICARE ==
[2022-08-20 09:41] VITALS: BP 154/80; PULSE 96; RESP 16; TEMP 97.8
--- NOTE | 2022-08-20 10:07 | P.PN ---
Subjective Progress Note Date: 08/20/22 Principal diagnosis: left breast stage IA invasive ductal cancer left breast stage IA invasive ductal cancer Yissel is a 70-year-old white female seen in consultation for Dr. Ulloa regarding an ultrasound-guided core biopsy of the left breast which was positive for invasive ductal carcinoma in 2020. The lesion was approximately 1.2 cm in size. It was ER/WA positive and HER-2 negative. Yissel had a computed tomography scan done for surveillance secondary to the fact that she smokes 1 pack per day for 57 years. On the computed tomography scan an incidental finding of a lesion in the left breast was noted. She did not feel any lumps masses or nodules in either breast. The patient subsequently had a bilateral mammogram performed which revealed a lesion in the 2 o'clock position of the left breast. An ultrasound core biopsy was performed which was positive for invasive ductal carcinoma. Her last bilateral mammogram prior to that had been in approximately 2016. She subsequently underwent a left breast lumpectomy and sentinel node biopsy on 5420. The lesion was a T1 N0 M0 G2 ER positive [place] positive HER-2 negative stage IA cancer. She completed radiation therapy on in September 2020. She is presently on arimidex and tolerating it well. She did not have any chemotherapy. Bilateral mammogram on 08-16-22 BIRAD 2 Note radiation oncology reviewed 04-14-22 She is not complaining of any lumps masses or nodules of concern in either breast. She is taking Anastrazole. Caffeine: One cup of coffee per day Nicotine: 1 pack per day Chocolate:occasional hormones: none, stopped 20 years ago Family History: mother: lung, and brain brother: colon sister: lung Hormonal History: menarche: 12 , breast fed: no, age at first : 17 menopause: partial hysterectomy for pre-cancer at 30 BCP: none hormones: short time less than 1 year Surgical History: Partial hysterectomy at 30 Cyst removed from right [employer] Medical history: arthritis Inhaler for breathing/ COPD Social History; smoke: 1 pack per day for approximately 57 years Alcohol: Negative Drugs: Negative - Constitutional Constitutional: Denies chills, Denies fever - EENT Eyes: denies blurred vision, denies pain Ears: deny: decreased hearing, tinnitus Ears, nose, mouth and throat: Denies headache, Denies sore throat - Breasts Breasts: bilateral: as per HPI - Cardiovascular Cardiovascular: Reports shortness of breath, Denies chest pain - Respiratory Comment: smoker: 1 PPD for 57 years - Gastrointestinal Gastrointestinal: Denies abdominal pain, Denies diarrhea, Denies nausea, Denies vomiting - Genitourinary (Female) Genitourinary: Denies dysuria, Denies hematuria - Menstruation Menstruation: Reports post hysterectomy - Musculoskeletal Comment: arthritis - Integumentary Integumentary: Denies pruritus, Denies rash - Neurological Neurological: Denies numbness, Denies weakness - Psychiatric Psychiatric: Reports anxiety, Reports depression - Endocrine Endocrine: Denies fatigue, Denies weight change - Hematologic/Lymphatic Comment: none - Allergic/Immunologic Allergic/Immunologic: Reports as per HPI Past Medical History Past Medical History: COPD, Osteoarthritis (OA) Additional Past Medical History / Comment(s): RECENT BRONCHITIS. History of Any Multi-Drug Resistant Organisms: None Reported Past Surgical History: Breast Surgery, Hysterectomy Additional Past Surgical History / Comment(s): BOTH BREAST BX-NEG. Past Anesthesia/Blood Transfusion Reactions: No Reported Reaction Past Psychological History: No Psychological Hx Reported Past Alcohol Use History: Occasional Additional Past Alcohol Use History / Comment(s): SMOKED SINCE 13, 1 PPD. Past Drug Use History: None Reported Objective - Vital Signs Vital signs: Vital Signs Temp 97.8 F 08/20/22 09:38 Pulse 96 08/20/22 09:38 Resp 16 08/20/22 09:38 BP 154/80 08/20/22 09:38 Pulse Ox 98 08/20/22 09:38 FiO2 Intake & Output 08/19/22 08/20/22 08/20/22 18:59 06:59 18:59 Weight 58.967 kg - Constitutional General appearance: Present: cooperative - EENT Eyes: Present: EOMI ENT: Present: hearing grossly normal - Neck Neck: Present: normal ROM - Respiratory Respiratory: bilateral: CTA - Cardiovascular Rhythm: regular Heart sounds: normal: S1, S2 - Gastrointestinal General gastrointestinal: Present: soft - Integumentary Integumentary: Present: normal turgor - Musculoskeletal Musculoskeletal: Present: gait normal - Psychiatric Psychiatric: Present: A&O x's 3, appropriate affect, intact judgment & insight - Additional findings Additional findings: Breast examination: BRA: 34D Palpation: Right breast: Multi-positional exam no dominant masses or nodules of concern Right axilla: No adenopathy of concern Left breast: Multi-positional exam postoperative changes no dominant masses or nodules of concern Left axilla: No adenopathy of concern Assessment and Plan Assessment: Impression: Patient status post left breast lumpectomy and sentinel node biopsy for stage IA invasive ductal carcinoma, no evidence of recurrent cancer Patient presently on an aromatase inhibitor Plan: Bilateral mammogram July 2022, done 08-16-22 personally reviewed BIRAD 2 repeat bilateral mammogram in 1 year Follow up here in 6 months for exam Follow-up with medical oncology CC: Dr. Bermeo
== END ==
LOC: WWCWWP 09:32
PROVIDERS: ATTEND Surgery
DX: C50.912 Malignant neoplasm of unspecified site of left female breast (principal); F17.210 Nicotine dependence, cigarettes, uncomplicated; J44.9 Chronic obstructive pulmonary disease, unspecified; M19.90 Unspecified osteoarthritis, unspecified site; Z17.0 Estrogen receptor positive status [ER+]; Z79.811 Long term (current) use of aromatase inhibitors; Z92.3 Personal history of irradiation; Z88.2 Allergy status to sulfonamides

== ENCOUNTER → 2023-08-11 | Outpatient (CLI) | payer MEDICARE ==
--- NOTE | 2023-08-12 20:23 | BD ---
EXAMINATION TYPE: Axial Bone Density DATE OF EXAM: 08/11/2023 CLINICAL HISTORY: 72 years old Female. ICD-10 CODE: C50.412 BR CA Height: 61.25 Weight: 113.6 FRAX RISK QUESTIONS: Alcohol (3 or more units per day): no Family History (Parent hip fracture): no Glucocorticoids (More than 3mos): no (Ex: prednisone, prednisolone, methylprednisolone, dexamethasone, and hydrocortisone). History of Fracture in Adulthood: no Secondary Osteoporosis: 1. Type 1 Diabetes: no 2. Hyperthyroidism: no 3. Menopause before 45: no 4. Malnutrition: no 5. Chronic liver disease: no Rheumatoid Arthritis: no Current Tobacco Use: yes RISK FACTORS HISTORY OF: Hip Fracture (Right/Left): no Spine Fracture: no History of Wrist Fracture: no Surgery to Spine/Hip(right/left)/Wrist (right/left): no MEDICATIONS: Thyroid Medications: no Osteoporosis Medications: no Which medication: How Long: EXAM MEASUREMENTS: Bone mineral densitometry was performed using the [employer] System. Bone mineral density as measured about the Lumbar spine is: ----- L1-L4(G/cm2): 0.860 T Score Values are as follows: ----- L1: -3.0 ----- L2: -3.4 ----- L3: -2.1 ----- L4: -2.5 ----- L1-L4: -2.7 Z Score Values are as follows: ----- L1: -0.8 ----- L2: -1.2 ----- L3: 0.1 ----- L4: -0.3 ----- L1-L4: -0.5 Bone mineral density has: decreased -0.5 % since study of: 04/16/2021 Bone mineral density about the R hip (g/cm2): 0.7473 Bone mineral density about the L hip (g/cm2): 0.742 T Score values are as follows: -----R Neck: -2.2 -----L Neck: -2.5 -----R Total: -2.1 -----L Total: -2.1 Z Score values are as follows: -----R Neck: 0.0 -----L Neck: -0.3 -----R Total: -0.1 -----L Total: -0.1 Bone mineral density has: decreased -8.9 % since study of: 04/16/2021 FRAX%s: The graph provided illustrates a 16.6% chance for a major osteoporotic fx and a 7.9% chance f or the hips probability for fx in 10 years time. IMPRESSION: Osteoporosis (T Score less than -2.5). There is increased fracture risk and therapy is usually indicated based on age. Re-Screen 1-2 years. NOTE: T-SCORE=SD OF THE YOUNG ADULT MEAN.
== END | disposition home or self-care (01) ==
LOC: RADBDWWP 13:07
PROVIDERS: ATTEND Internal Medicine Hematology & Oncology
DX: M81.0 Age-related osteoporosis without current pathological fracture (principal); M85.89 Other specified disorders of bone density and structure, multiple sites; C50.412 Malignant neoplasm of upper-outer quadrant of left female breast; J44.9 Chronic obstructive pulmonary disease, unspecified; E78.5 Hyperlipidemia, unspecified
CPT/HCPCS: 77080

== ENCOUNTER → 2023-08-19 | Outpatient (CLI) | payer MEDICARE ==
--- NOTE | 2023-08-22 12:16 | MM ---
Reason for Exam: Additional evaluation requested from prior study. Last screening mammogram was performed 12 month(s) ago. Patient History: Menarche at age 12. First Full-Term at age 17. Hysterectomy at age 30. Postmenopausal. Breast cancer, left, age 69. Previous chest radiation therapy at age 69. 07/03/2020, US breast needle core LT - 2 on the Left side. 07/29/2020, Lumpectomy on the Left side. 07/29/2020, Malignant Core Biopsy on the left side. Prior Study Comparison: 06/20/2020 Bilateral MG 3D diag mammo w/cad WHITNEY - 2, Unknown. 07/03/2020 Left MG diagnostic mammo LT wo CAD., Unknown. 08/12/2021 Bilateral MG 3D diag mammo w/cad [facility]NEY, [facility]. 08/16/2022 Bilateral MG 3D diag mammo w/cad WHITNEY, [facility]. Tissue Density: The breasts are heterogeneously dense, which may obscure small masses. Findings: Analyzed By CAD. The pattern is symmetrical. Significant interval change. Benign rounded calcifications are within the right breast. No suspicious groups of microcalcifications, spiculated or lobular masses, architectural distortion or other secondary signs of malignancy are mammographically apparent. Overall Assessment: Benign, BI-RAD 2 Management: Screening Mammogram of both breasts in 1 year. A negative mammogram report should not preclude additional follow up of suspicious palpable abnormalities. Patient should continue monthly self breast exam. A clinical breast exam by your physician is recommended on an annual basis and results should be correlated with mammographic findings. Note on Torrie scores and lifetime risk: 1. A Torrie score greater than 3% is considered moderate risk. If this is the case, consider specialist referral to assess eligibility for a risk reducing agent. 2. If overall lifetime risk for the development of breast cancer is 20% or higher, the patient may qualify for future screening with alternating mammogram and breast MRI. Electronically signed and approved by: Henrique Bolanos D.O. Radiologis
== END | disposition home or self-care (01) ==
LOC: RADMAMWWP 12:39
PROVIDERS: ATTEND Surgery
DX: R92.333 Mammographic heterogeneous density, bilateral breasts (principal); Z78.0 Asymptomatic menopausal state; Z85.3 Personal history of malignant neoplasm of breast
CPT/HCPCS: 77066; G0279; 77062

== ENCOUNTER → 2024-03-09 | Outpatient (CLI) | payer MEDICARE, OTHER ==
--- NOTE | 2024-03-09 14:15 | CTL ---
EXAMINATION TYPE: CT Low Dose Lung DATE OF EXAM ORDERED: 03/09/2024 COMPARISON: CT Low Dose Lung 06/16/2020, 05/21/2016 CLINICAL INDICATION: Female, 73 years old with history of Z12.2 Screening; F17.210; [facility], Current smok er, 1 ppd x 43 years, Lung cancer screening, History of Smoking/tobacco use. TECHNIQUE: Low dose computed tomography scan was performed through the chest at 1 mm thick sections a nd reconstructed images in multiple planes at 1 mm and [address] DLP: 46.[address] CTDI: 1.3 mGy Automated exposure control for dose reduction was used. CT DIAGNOSTIC QUALITY: Satisfactory FINDINGS: Nodules: There are 2 regions of masslike consolidation with surrounding reticular opacities within the left up per lobe and adjacent satellite nodules. The more superior one measures 3.6 x 2.4 cm (series 6, image 22). The other more peripheral lower one measures 3.1 x 1.2 cm. LUNGS: COPD: Severity: Mild Fibrosis: Severity: None Lymph nodes: None Other findings: Minimal linear scarring and/or atelectasis within the right middle lobe RIGHT PLEURAL SPACE: Effusion: None Calcification: None Thickening: None Pneumothorax: None LEFT PLEURAL SPACE: Effusion: None Calcification: None Thickening: None Pneumothorax: None HEART: Heart Size: Normal Coronary Calcification: Small Pericardial Effusion: None OTHER FINDINGS: Upper abdomen: None Bony thorax: None Supraclavicular region: None Other: Surgical and/or biopsy clips in the left breast. IMPRESSION: There are 2 regions of masslike consolidation with satellite nodularity in the left upper lobe. This raises concern for possible malignancy versus other etiologies. Further evaluation with PET/CT or tis [place] sampling is recommended. CT LUNG RAD AND CT CHEST RECOMMENDATION: Lung-Rad 4B or 4X Very Suspicious: Follow-up Chest CT with o r without contrast or PET/CT and/or tissue sampling. PET/CT may be used when there is a > 8 mm solid component. S Modifier (other clinically significant findings): None [facility], , 03/09/2024 2:13 PM
== END | disposition home or self-care (01) ==
LOC: RADCTMAIN 13:00
PROVIDERS: ATTEND Family Medicine
DX: Z12.2 Encounter for screening for malignant neoplasm of respiratory organs (principal); F17.210 Nicotine dependence, cigarettes, uncomplicated; R91.8 Other nonspecific abnormal finding of lung field
CPT/HCPCS: 71271

== ENCOUNTER → 2024-03-09 | Outpatient (CLI) | payer MEDICARE ==
[2024-03-09 13:26] VITALS: BP 114/62; PULSE 88; RESP 17; TEMP 97.8
--- NOTE | 2024-03-09 13:28 | P.PN ---
Subjective Progress Note Date: 03/09/24 03-09-24 Principal diagnosis: left breast stage IA invasive ductal cancer [id number]+Her2-G2 Yissel is a 73-year-old white female seen in consultation for Dr. Ulloa regarding an ultrasound-guided core biopsy of the left breast which was positive for invasive ductal carcinoma in 2020. The lesion was approximately 1.2 cm in size. It was ER/[place] positive and HER-2 negative. Yissel had a computed tomography scan done for surveillance secondary to the fact that she smokes 1 pack per day for 57 years. On the computed tomography scan an incidental finding of a lesion in the left breast was noted. She did not feel any lumps masses or nodules in either breast. The patient subsequently had a bilateral mammogram performed which revealed a lesion in the 2 o'clock position of the left breast. An ultrasound core biopsy was performed which was positive for invasive ductal carcinoma. Her last bilateral mammogram prior to that had been in approximately 2016. She subsequently underwent a left breast lumpectomy and sentinel node biopsy on 5420. The lesion was a T1 N0 M0 G2 ER positive [place] positive HER-2 negative stage IA cancer. She completed radiation therapy on in September 2020. She is presently on arimidex and tolerating it well. She did not have any chemotherapy. Bilateral mammogram on 08-19-23 BIRAD 2 She is not complaining of any lumps masses or nodules of concern in either breast. She is taking Anastrazole without any concerns. note radiation oncology 04-13-23 reviewed Caffeine: One cup of coffee per day Nicotine: 1 pack per day Chocolate:occasional hormones: none, stopped 20 years ago Family History: mother: lung, and brain brother: colon sister: lung Hormonal History: menarche: 12 , breast fed: no, age at first : 17 menopause: partial hysterectomy for pre-cancer at 30 BCP: none hormones: short time less than 1 year Surgical History: Partial hysterectomy at 30 Cyst removed from right [facility] cataract surgery yesterday left eye, right eye done one month ago Medical history: arthritis Inhaler for breathing/ COPD Social History; smoke: 1 pack per day for approximately 57 years Alcohol: Negative Drugs: Negative - Constitutional Constitutional: Denies chills, Denies fever - EENT Eyes: denies blurred vision, denies pain Ears: deny: decreased hearing, tinnitus Ears, nose, mouth and throat: Denies headache, Denies sore throat - Breasts Breasts: bilateral: as per HPI - Cardiovascular Cardiovascular: Reports shortness of breath, Denies chest pain - Respiratory Comment: smoker: 1 PPD for 57 years - Gastrointestinal Gastrointestinal: Denies abdominal pain, Denies diarrhea, Denies nausea, Denies vomiting - Genitourinary (Female) Genitourinary: Denies dysuria, Denies hematuria - Menstruation Menstruation: Reports post hysterectomy - Musculoskeletal Comment: arthritis - Integumentary Integumentary: Denies pruritus, Denies rash - Neurological Neurological: Denies numbness, Denies weakness - Psychiatric Psychiatric: Reports anxiety, Reports depression - Endocrine Endocrine: Denies fatigue, Denies weight change - Hematologic/Lymphatic Comment: none - Allergic/Immunologic Allergic/Immunologic: Reports as per HPI Past Medical History Past Medical History: COPD, Osteoarthritis (OA) Additional Past Medical History / Comment(s): RECENT BRONCHITIS. History of Any Multi-Drug Resistant Organisms: None Reported Past Surgical History: Breast Surgery, Hysterectomy Additional Past Surgical History / Comment(s): BOTH BREAST BX-NEG. Past Anesthesia/Blood Transfusion Reactions: No Reported Reaction Past Psychological History: No Psychological Hx Reported Past Alcohol Use History: Occasional Additional Past Alcohol Use History / Comment(s): SMOKED SINCE 13, 1 PPD. Past Drug Use History: None Reported Objective - Constitutional General appearance: Present: cooperative - EENT Eyes: Present: EOMI ENT: Present: hearing grossly normal - Neck Neck: Present: normal ROM - Respiratory Respiratory: bilateral: CTA - Cardiovascular Rhythm: regular Heart sounds: normal: S1, S2 - Integumentary Integumentary: Present: normal turgor - Musculoskeletal Musculoskeletal: Present: gait normal - Psychiatric Psychiatric: Present: A&O x's 3, appropriate affect, intact judgment & insight - Additional findings Additional findings: Breast examination: BRA: 34D Palpation: Right breast: Multi-positional exam no dominant masses or nodules of concern Right axilla: No adenopathy of concern Left breast: Multi-positional exam postoperative changes no dominant masses or nodules of concern, post surgical and radiation changes Left axilla: No adenopathy of concern Assessment and Plan Assessment: Impression: Patient status post left breast lumpectomy and sentinel node biopsy for stage IA invasive ductal carcinoma, no evidence of recurrent cancer Patient presently on an aromatase inhibitor Plan: Bilateral mammogram July 2022, done 08-19-23 personally reviewed BIRAD 2 repeat bilateral mammogram in July 2024 with appointment Follow-up with medical oncology CC: Dr. Bermeo
== END ==
LOC: WWCWWP 13:16
PROVIDERS: ATTEND Surgery
DX: Z48.817 Encounter for surgical aftercare following surgery on the skin and subcutaneous tissue (principal); F17.210 Nicotine dependence, cigarettes, uncomplicated; Z85.3 Personal history of malignant neoplasm of breast; Z92.3 Personal history of irradiation; Z88.2 Allergy status to sulfonamides

== ENCOUNTER → 2024-04-12 | Outpatient (CLI) | payer MEDICARE, OTHER ==
[2020-08-08 16:31] VITALS: BP 163/80; PULSE 76; RESP 20; TEMP 98.2
--- NOTE | 2020-08-08 16:41 | P.PN ---
Subjective Progress Note Date: 08/08/20 Principal diagnosis: status post left lumpectomy and SNB Yissel is status post left breast lumpectomy and sentinel node biopsy on 5421. This was for 1.4 cm invasive ductal carcinoma. All margins were negative. There was DCIS present as well but margins were negative. The patient does complain of some discomfort under her left arm. She has not had any fever or chills. Objective - Constitutional General appearance: Present: cooperative - Respiratory Respiratory: bilateral: CTA - Cardiovascular Heart sounds: normal: S1, S2 - Integumentary Integumentary Comment(s): Incision clean and dry left breast and under her left arm Integumentary: Present: normal turgor - Musculoskeletal Musculoskeletal: Present: gait normal - Psychiatric Psychiatric: Present: A&O x's 3, appropriate affect Assessment and Plan Assessment: Impression: Patient is status post left breast lumpectomy and sentinel node biopsy at this time she is doing well however she does complain of some muscle type ache in her left back Plan: 1. Follow-up medical oncology 2. Follow-up radiation oncology 3. Follow up here in 4 months Cc: Dr. Felix Ulloa
--- NOTE | 2024-04-13 11:31 | PE ---
EXAMINATION TYPE: PET CT fusion skull to thigh DATE OF EXAM: 04/12/2024 COMPARISON: Low-dose lung screening CT March 09, 2024 HISTORY: Lung mass, recent abnormal CT TECHNIQUE: Following the intravenous administration of 11.17 mCi of F-18 FDG, whole body images are performed from the skull base to the midthigh. Images are reviewed on the computer in the coronal, a xial, and sagittal planes. Reconstructed rotating images are created on independent workstation and reviewed on the computer. A localization and attenuation correction CT is performed in conjunction with the PET scan. Blood glucose level equals 154 SCAN: Initial Scan FINDINGS: SKULL BASE AND NECK: Some hypermetabolic uptake anterior tongue base is presumed nonsignificant. CHEST, MEDIASTINUM, AND HILAR REGION: There is redemonstration of masslike consolidation and/or mass( es) in the anterior left upper to midlung. This measures at least 3.2 x 1.2 cm axial image 82. This shows abnormal hypermetabolic uptake with max SUV of 10.27 on axial image 84. There is abnormal AP window lymph node measuring 1.2 x 1.0 cm axial image 82 with max SUV of 10.43. T here is additional nonspecific lymph node in the anterior left hilar region axial image 88 with mild hypermetabolic uptake, max SUV is 3.83 Pleural-based opacity inferior to this area along the anterior aspect for reference axial image 90 sh ows mild hypermetabolic uptake with max SUV of 4.3 on axial image 92. ABDOMEN AND PELVIS: Normal excretion is seen. No hypermetabolic adrenal masses. No abnormal uptake in the abdomen or pelvis. OSSEOUS STRUCTURES: No abnormal hypermetabolic uptake. OTHER CT: Mild/moderate calcified plaque infrarenal, aortic stents into iliac branch vessels. Uterus is surgically absent or atrophic in appearance. IMPRESSION: Masslike consolidation and/or lobulated masses persists in the anterior left upper to mid lung and show abnormal hypermetabolic uptake along with suspicious AP window lymph node is concerning for primary lung malignancy. Cannot exclude early left anterior hilar lymph node involvement. Anteri or left lung pleural-based density favors inflammatory etiology. No distal metastatic disease is note d. [facility], , 04/13/2024 11:29 AM
== END | disposition home or self-care (01) ==
LOC: RADPETMAIN 13:22
PROVIDERS: ATTEND Internal Medicine Critical Care Medicine
DX: G89.18 Other acute postprocedural pain (principal); M79.18 Myalgia, other site; F17.200 Nicotine dependence, unspecified, uncomplicated; J98.4 Other disorders of lung; Z85.3 Personal history of malignant neoplasm of breast; Z98.890 Other specified postprocedural states; Z88.2 Allergy status to sulfonamides
CPT/HCPCS: 78815; A9552

== ENCOUNTER → 2024-06-04 | Outpatient (CLI) | payer MEDICARE ==
--- NOTE | 2024-06-04 15:22 | MR ---
EXAMINATION TYPE: MR brain wo/w con DATE OF EXAM: 06/04/2024 2:06 PM COMPARISON: None. CLINICAL INDICATION: Female, 73 years old with history of C34.12, Lung and breast cancer. TECHNIQUE: Multi planar multi sequence imaging of the brain. CONTRAST: Patient received 5 mL intravenous Gadobutrol gadolinium contrast. Pre and post contrast en hanced images are obtained. FINDINGS: The ventricles, basal cisterns and sulci overlying the cerebral convexities are mildly enlarged. There is evidence of mild periventricular white matter ischemic demyelination. Remote deep white matter insults are also noted. No acute edema is seen on diffusion weighted imaging. There is no evidence for midline shift or mass effect. Acute intracranial hemorrhage or extra-axial collection is not evident. No enhancing lesions are seen. The paranasal sinuses and mastoid air cells are well-aerated. IMPRESSION: Age-related atrophic and chronic small vessel ischemic change. No acute intracranial process at this time. No enhancing lesions are seen. [facility], , 06/04/2024 3:19 PM
== END | disposition home or self-care (01) ==
LOC: RADMRIMAIN 13:16
PROVIDERS: ATTEND Internal Medicine Hematology & Oncology
DX: C34.12 Malignant neoplasm of upper lobe, left bronchus or lung (principal); C50.412 Malignant neoplasm of upper-outer quadrant of left female breast; M85.9 Disorder of bone density and structure, unspecified; J44.9 Chronic obstructive pulmonary disease, unspecified; G31.1 Senile degeneration of brain, not elsewhere classified; I67.82 Cerebral ischemia
CPT/HCPCS: 70553; A9585

== ENCOUNTER 2024-06-26 15:31 | Emergency (ER) | payer MEDICARE ==
--- NOTE | 2024-06-26 16:39 | ED ---
Abdominal Pain HPI - General Chief Complaint: Abdominal Pain Stated Complaint: ABD pain Time Seen by Provider: 06/26/24 16:34 Source: patient, RN notes reviewed Mode of arrival: ambulatory Limitations: no limitations - History of Present Illness Initial Comments: 73-year-old female presenting to the ER for evaluation of nausea, vomiting and abdominal pain. Patient with a past medical history significant of lung cancer currently undergoing chemotherapy and following up with Dr. Arana, DM, HLD, COPD. Patient reports on Tuesday night she consumed 2 stool softeners as she was constipated for 3 or 4 days prior. She states on Tuesday she started to have a left lower abdominal cramping and slowly started to have bowel movements that turned into diarrhea. She states that abdominal cramping became so severe she had to lay on the bathroom floor until a subtest sided when she had another bout of diarrhea. She also admits to nausea and vomiting. She denies any hematemesis, coffee-ground emesis, hematochezia or melena. Patient states throughout yesterday and today she has been having an 8 out of 10 left lower quadrant abdominal pain. Pain does not radiate. She has taken [id number] Tylenol for her symptom control. She has not taken anything for nausea. She denies any fevers, chills, chest pain, shortness of breath or urinary complain ts. No history of ulcerative colitis, Crohn's disease or diverticulitis. No other complaints at this time. - Related Data Home Medications Medication Instructions Recorded Confirmed Umeclidinium [place] [Incruse 1 puff INHALATION RT-DAILY 07/15/20 05/10/24 Ellipta] Atorvastatin [Lipitor] 10 mg PO DAILY 07/24/20 05/10/24 hydrOXYzine HCL 25 mg PO BID PRN 07/24/20 05/10/24 Anastrozole [Arimidex] 1 mg PO DAILY 04/09/21 05/10/24 Cholecalciferol [Vitamin D3 (25 50 mcg PO DAILY 04/09/21 05/10/24 Mcg = 1000 Iu)] Albuterol Sulfate [Albuterol 1 - 2 puff PO Q6H PRN 08/31/21 05/10/24 Sulfate Hfa] Ascorbic Acid [Vitamin C] 500 mg PO DAILY 08/31/21 05/10/24 Calcium Carbonate [Calcium] 600 mg PO DAILY 08/31/21 05/10/24 lisinopriL [Zestril] 2.5 mg PO DAILY 08/31/21 05/10/24 metFORMIN HCL [Glucophage] 500 mg PO BID 04/16/22 05/10/24 Previous Rx's Medication Instructions Recorded Amoxic-Pot Clav 875-125Mg 1 tab PO Q12HR #20 tab 06/26/24 [Augmentin 875-125] Allergies Allergy/AdvReac Type Severity Reaction Status Date / Time Sulfa (Sulfonamide Allergy Rash/Hives Verified 06/26/24 15:40 Antibiotics) Review of Systems ROS Statement: Those systems with pertinent positive or pertinent negative responses have been documented in the HPI. ROS Other: All systems not noted in ROS Statement are negative. Past Medical History Past Medical History: Cancer, COPD, Diabetes Mellitus, Hyperlipidemia, Osteoarthritis (OA) Additional Past Medical History / Comment(s): Hx. of Bronchitis, Breast cancer History of Any Multi-Drug Resistant Organisms: None Reported Past Surgical History: Breast Surgery, Hysterectomy Additional Past Surgical History / Comment(s): R breast surgery- benign,lft breast cancer cyst removed from scientology. toby cataracts removed, Past Anesthesia/Blood Transfusion Reactions: No Reported Reaction Past Psychological History: No Psychological Hx Reported Smoking Status: Current every day smoker Past Alcohol Use History: None Reported Past Drug Use History: None Reported - Past Family History Mother Family Medical History: Cancer Additional Family Medical History / Comment(s): Lung General Exam Limitations: no limitations General appearance: alert, in no apparent distress Respiratory exam: Present: normal lung sounds bilaterally. Absent: respiratory distress, wheezes, rales, rhonchi, stridor Cardiovascular Exam: Present: regular rate, normal rhythm, normal heart sounds. Absent: systolic murmur, diastolic murmur, rubs, gallop, clicks GI/Abdominal exam: Present: soft, tenderness (LLQ), normal bowel sounds. Absent: distended, guarding, rebound, rigid Extremities exam: Present: normal inspection, full ROM, normal capillary refill. Absent: tenderness, pedal edema, joint swelling, calf tenderness Neurological exam: Present: alert, oriented X3, CN II-XII intact Skin exam: Present: warm, dry, intact, normal color. Absent: rash Course Vital Signs 06/26/24 15:37 Temperature 97.7 F Pulse Rate 111 H Respiratory 20 Rate Blood Pressure 142/72 O2 Sat by Pulse 98 Oximetry Medical Decision Making - Lab Data Result diagrams: 06/26/24 16:54 06/26/24 16:54 Lab Results 06/26/24 06/26/24 06/26/24 Range/Units 16:54 16:54 16:54 WBC 7.0 (3.8-10.6) k/uL RBC 4.96 (3.80-5.40) m/uL Hgb 12.8 (11.4-16.0) gm/dL Hct 41.7 (34.0-46.0) % MCV 84.1 (80.0-100.0) fL MCH 25.9 (25.0-35.0) pg MCHC 30.8 L (31.0-37.0) g/dL RDW 15.5 (11.5-15.5) % Plt Count 301 (150-450) k/uL MPV 8.6 Neutrophils % 72 % Lymphocytes % 21 % Monocytes % 4 % Eosinophils % 1 % Basophils % 0 % Neutrophils # 5.0 (1.3-7.7) k/uL Lymphocytes # 1.5 (1.0-4.8) k/uL Monocytes # 0.3 (0-1.0) k/uL Eosinophils # 0.1 (0-0.7) k/uL Basophils # 0.0 (0-0.2) k/uL Sodium 133 L (137-145) mmol/L Potassium 3.9 (3.5-5.1) mmol/L Chloride 96 L (98-107) mmol/L Carbon Dioxide 28 (22-30) mmol/L Anion Gap 9 mmol/L BUN 20 H (7-17) mg/dL Creatinine 0.76 (0.52-1.04) mg/dL Est GFR (CKD-EPI)AfAm 89 (>60 ml/min/1.73 sqM) Est GFR (CKD-EPI)NonAf 77 (>60 ml/min/1.73 sqM) Glucose 115 H (74-99) mg/dL Plasma Lactic Acid Vikas (0.7-2.0) mmol/L Calcium 9.4 (8.4-10.2) mg/dL Total Bilirubin 0.7 (0.2-1.3) mg/dL AST 22 (14-36) U/L ALT 19 (4-34) U/L Alkaline Phosphatase 83 (38-126) U/L Total Protein 7.1 (6.3-8.2) g/dL Albumin 4.4 (3.5-5.0) g/dL Amylase 87 (30-110) U/L Lipase 180 (23-300) U/L Urine Color Light Yellow Urine Appearance Clear (Clear) Urine pH 6.0 (5.0-8.0) Ur Specific [place] 1.018 (1.001-1.035) Urine Protein Trace H (Negative) Urine Glucose (UA) Negative (Negative) Urine Ketones Negative (Negative) Urine Blood Negative (Negative) Urine Nitrite Negative (Negative) Urine Bilirubin Negative (Negative) Urine Urobilinogen <2.0 (<2.0) mg/dL Ur Leukocyte Esterase Negative (Negative) Influenza Type A (PCR) (Not Detectd) Influenza Type B (PCR) (Not Detectd) RSV (PCR) (Not Detectd) SARS-CoV-2 (PCR) (Not Detectd) 06/26/24 06/26/24 Range/Units 16:54 16:54 WBC (3.8-10.6) k/uL RBC (3.80-5.40) m/uL Hgb (11.4-16.0) gm/dL Hct (34.0-46.0) % MCV (80.0-100.0) fL MCH (25.0-35.0) pg MCHC (31.0-37.0) g/dL RDW (11.5-15.5) % Plt Count (150-450) k/uL MPV Neutrophils % % Lymphocytes % % Monocytes % % Eosinophils % % Basophils % % Neutrophils # (1.3-7.7) k/uL Lymphocytes # (1.0-4.8) k/uL Monocytes # (0-1.0) k/uL Eosinophils # (0-0.7) k/uL Basophils # (0-0.2) k/uL Sodium (137-145) mmol/L Potassium (3.5-5.1) mmol/L Chloride (98-107) mmol/L Carbon Dioxide (22-30) mmol/L Anion Gap mmol/L BUN (7-17) mg/dL Creatinine (0.52-1.04) mg/dL Est GFR (CKD-EPI)AfAm (>60 ml/min/1.73 sqM) Est GFR (CKD-EPI)NonAf (>60 ml/min/1.73 sqM) Glucose (74-99) mg/dL Plasma Lactic Acid Vikas 1.2 (0.7-2.0) mmol/L Calcium (8.4-10.2) mg/dL Total Bilirubin (0.2-1.3) mg/dL AST (14-36) U/L ALT (4-34) U/L Alkaline Phosphatase (38-126) U/L Total Protein (6.3-8.2) g/dL Albumin (3.5-5.0) g/dL Amylase (30-110) U/L Lipase (23-300) U/L Urine Color Urine Appearance (Clear) Urine pH (5.0-8.0) Ur Specific [place] (1.001-1.035) Urine Protein (Negative) Urine Glucose (UA) (Negative) Urine Ketones (Negative) Urine Blood (Negative) Urine Nitrite (Negative) Urine Bilirubin (Negative) Urine Urobilinogen (<2.0) mg/dL Ur Leukocyte Esterase (Negative) Influenza Type A (PCR) Not Detected (Not Detectd) Influenza Type B (PCR) Not Detected (Not Detectd) RSV (PCR) Not Detected (Not Detectd) SARS-CoV-2 (PCR) Not Detected (Not Detectd) Disposition Clinical Impression: Colitis Disposition: HOME SELF-CARE Condition: Stable Instructions (If sedation given, give patient instructions): Colitis (ED) Additional Instructions: Follow-up closely with PCP. You may take Zofran every 8 hours as needed for nausea. Take Augmentin as prescribed. Return to the ER for any new or worsening concerns. Prescriptions: Amoxic-Pot Clav 875-125Mg [Augmentin 875-125] 1 tab PO Q12HR #20 tab Is patient prescribed a controlled substance at d/c from ED?: No Referrals: Sugey Bermeo MD [Primary Care Provider] - 1-2 days Time of Disposition: 18:58
[2024-06-26] MEDS: SODIUM CHLORIDE 0.9% 1,000 ML IV ONE (17:03)
[2024-06-26] MEDS: ONDANSETRON 4 MG/2 ML VIAL IVP STA (17:04)
[2024-06-26] MEDS: KETOROLAC 15 MG/ML 1 ML VIAL IVP STA (17:04)
[2024-06-26 17:12] LABS: Appearance,Urine Clear (Clear); Bilirubin,Urine Negative (Negative); Blood,Urine Negative (Negative); Color,Urine Light Yellow; Glucose,Urine (UA) Negative (Negative); Ketones,Urine Negative (Negative); Leukocyte Esterase,Urine Negative (Negative); Nitrite,Urine Negative (Negative); Protein,Urine Trace (Negative); Specific Gravity,Urine 1.018 (1.001-1.035); Urobilinogen,Urine <2.0 mg/dL (<2.0)
[2024-06-26 17:19] LABS: Basophils % (A) 0 %; Eosinophils # (A) 0.1 k/uL (0-0.7); Eosinophils % (A) 1 %; HCT 41.7 % (34.0-46.0); HGB 12.8 gm/dL (11.4-16.0); Lymphocytes # (A) 1.5 k/uL (1.0-4.8); Lymphocytes % (A) 21 %; MCH 25.9 pg (25.0-35.0); MCHC 30.8 g/dL (31.0-37.0); MCV 84.1 fL (80.0-100.0); Mean Platelet Volume 8.6; Monocytes # (A) 0.3 k/uL (0-1.0); Monocytes % (A) 4 %; Neutrophils % (A) 72 %; Platelet Count 301 k/uL (150-450); RBC 4.96 m/uL (3.80-5.40); RDW 15.5 % (11.5-15.5)
[2024-06-26 17:21] LABS: ALT 19 U/L (4-34); AST 22 U/L (14-36); African American GFR (CKD) 89 (>60 ml/min/1.73 sqM); Albumin 4.4 g/dL (3.5-5.0); Alkaline Phosphatase 83 U/L (38-126); Amylase 87 U/L (30-110); Anion Gap 9 mmol/L; Blood Urea Nitrogen 20 mg/dL (7-17); Calcium 9.4 mg/dL (8.4-10.2); Carbon Dioxide 28 mmol/L (22-30); Chloride 96 mmol/L (98-107); Glucose 115 mg/dL (74-99); Lipase 180 U/L (23-300); Non-African American GFR(CKD) 77 (>60 ml/min/1.73 sqM); Potassium 3.9 mmol/L (3.5-5.1); Sodium 133 mmol/L (137-145); Total Bilirubin 0.7 mg/dL (0.2-1.3); Total Protein 7.1 g/dL (6.3-8.2)
[2024-06-26 17:45] LABS: Influenza A Not Detected (Not Detectd); Influenza B Not Detected (Not Detectd); RSV Not Detected (Not Detectd)
--- NOTE | 2024-06-26 18:21 | CT ---
EXAMINATION TYPE: CT abdomen pelvis w con DATE OF EXAM: 06/26/2024 6:01 PM COMPARISON: 04/12/2024. CLINICAL INDICATION: Female, 73 years old with history of LLQ abd pain/n/v/d; left sided abdominal pa in TECHNIQUE: Axial CT abdomen pelvis w con;Sagittal and coronal reformats were created on a separate w orkstation. Contrast used:100 ml mL of Isovue 300 with IV Contrast, (none if empty) Oral contrast used: without Oral Contrast (none if empty) CT DLP: 471.8 mGycm, Automated exposure control for dose reduction was used. FINDINGS: LOWER CHEST: Unremarkable ABDOMEN LIVER: Simple appearing probable left hepatic lobe cyst. No follow-up recommended. GALLBLADDER AND BILE DUCTS: Unremarkable. PANCREAS: Unremarkable. SPLEEN: Unremarkable. ADRENAL GLANDS: Unremarkable. KIDNEYS AND URETERS: No evidence of hydronephrosis or renal calculus. The ureters are unremarkable. PELVIS BLADDER: No evidence for wall thickening or mass given limitations of exam. REPRODUCTIVE: Unremarkable. ABDOMEN & PELVIS STOMACH AND BOWEL: No evidence of bowel obstruction. Circumferential wall thickening of the descendin g colon with a few colonic diverticula present. Series 201 image 47. The appendix is normal. PERITONEUM/RETROPERITONEUM: No evidence of pneumoperitoneum or free fluid. VASCULATURE: Moderate atherosclerotic calcifications are present throughout the abdominal aorta and i ts branches. No evidence of aortic aneurysm. MUSCULOSKELETAL: No acute osseous abnormalities. Mild disc degeneration changes are present throughou t the thoracolumbar spine. LYMPH NODES: No gross evidence for lymphadenopathy. SOFT TISSUE/ABDOMINAL WALL: Unremarkable IMPRESSION: Colitis of the descending colon. No organizing fluid collection or perforation. [facility], , 06/26/2024 6:19 PM
[2024-06-26] MEDS: AMOXIC-POT CLAV 875-125MG 1 EACH TAB PO STA (19:12)
[2024-06-26] MEDS: ONDANSETRON 4 MG ODT STARTER PACK 2 TAB BTL PO STA (19:12)
[2024-06-26 19:17] VITALS: BP 138/76; PULSE 96; RESP 19; TEMP 98
== END 2024-06-26 19:17 | disposition home or self-care (01) ==
LOC: EC 15:31
DX: K52.9 Noninfective gastroenteritis and colitis, unspecified (principal); E11.9 Type 2 diabetes mellitus without complications; E78.5 Hyperlipidemia, unspecified; J44.9 Chronic obstructive pulmonary disease, unspecified; F17.200 Nicotine dependence, unspecified, uncomplicated; Z88.2 Allergy status to sulfonamides
CPT/HCPCS: 36415; 80053; 82150; 83605; 83690; 85025; 81003; 87636; 74177; 99284; 96374; 96375; 96361; J2405; J1885; S0119; Q9967

== ENCOUNTER → 2024-07-24 | Outpatient (CLI) | payer MEDICARE ==
[2024-07-24 13:21] LABS: African American GFR (CKD) >90 (>60 ml/min/1.73 sqM); Blood Urea Nitrogen 11 mg/dL (7-17); Non-African American GFR(CKD) 87 (>60 ml/min/1.73 sqM)
--- NOTE | 2024-07-24 14:13 | CT ---
CT thorax with contrast HISTORY: Left upper lobe abnormality seen on prior study. COMPARISON: Chest CT Ion protocol dated 05/10/2024. TECHNIQUE: Multiple axial images are obtained through the thorax following the uneventful administrat ion of nonionic IV contrast material. There are ill-defined infiltrates in the left upper lobe but they appear significantly smaller in siz e and less masslike than on the prior study. The right lung is clear. No pleural effusion or pneumothorax. The chest are normal and is no mediastinal, hilar or axillary adenopathy. There is scanning through the upper abdomen reveals no gross abnormality. There are no focal osseous lesions. IMPRESSION: Ill-defined infiltrates in left upper lobe seen on the prior study significant smaller and less dense than on the prior study. Findings indicate decreasing inflammatory process or treated neoplasm. Cont inued short-term follow-up to resolution is recommended. No new abnormality seen. [facility], , 07/24/2024 2:10 PM
== END | disposition home or self-care (01) ==
LOC: RADCTMAIN 12:50
PROVIDERS: ATTEND Internal Medicine Hematology & Oncology
DX: C34.12 Malignant neoplasm of upper lobe, left bronchus or lung (principal); C50.412 Malignant neoplasm of upper-outer quadrant of left female breast; J44.9 Chronic obstructive pulmonary disease, unspecified; M85.9 Disorder of bone density and structure, unspecified; E78.5 Hyperlipidemia, unspecified; R91.8 Other nonspecific abnormal finding of lung field
CPT/HCPCS: 82565; 84520; 71260; 36415; Q9967

== ENCOUNTER → 2024-09-04 | Outpatient (CLI) | payer MEDICARE ==
--- NOTE | 2024-09-04 11:17 | MM ---
Reason for Exam: Additional evaluation requested from prior study. Last mammogram was performed 1 year(s) and 1 month(s) ago. Patient History: Menarche at age 12. First Full-Term at age 17. Hysterectomy at age 30. Postmenopausal. Breast cancer, left, age 69. Previous chest radiation therapy at age 69. 07/03/2020, US breast needle core LT - 2 on the Left side. 07/29/2020, Lumpectomy on the Left side. 07/29/2020, Malignant Core Biopsy on the left side. Tissue Density: The breasts are heterogeneously dense, which may obscure small masses. Findings: Analyzed By CAD. There are small benign-appearing round calcifications redemonstrated scans of the left breast. Persistent distortion with dystrophic calcification and surgical clips in the left breast posteriorly. Stable circumscribed 6 mm mass in the anterior left breast from prior mammograms. No suspicious new mass or distortion in either breast. Overall Assessment: Benign, BI-RAD 2 Management: Screening Mammogram of both breasts in 1 year. . Results were given to the patient verbally at the time of exam. Patient should continue monthly self-breast exams. A clinical breast exam by your physician is recommended on an annual basis. This exam should not preclude additional follow-up of suspicious palpable abnormalities. Note on Torrie scores and lifetime risk: 1. A Torrie score greater than 3% is considered moderate risk. If this is the case, consider specialist referral to assess eligibility for a risk reducing agent. 2. If overall lifetime risk for the development of breast cancer is 20% or higher, the patient may qualify for future screening with alternating mammogram and breast MRI. [facility], , 09/04/2024 11:15 AM. Electronically signed and approved by: Larry Grande M.D.
== END | disposition home or self-care (01) ==
LOC: RADMAMWWP 10:48
PROVIDERS: ATTEND Surgery
DX: R92.333 Mammographic heterogeneous density, bilateral breasts (principal); Z78.0 Asymptomatic menopausal state; Z85.3 Personal history of malignant neoplasm of breast
CPT/HCPCS: 77062; 77066

== ENCOUNTER → 2024-10-12 | Outpatient (CLI) | payer MEDICARE ==
[2024-10-12 11:20] VITALS: BP 136/71; PULSE 59; RESP 17; TEMP 98
--- NOTE | 2024-10-12 11:59 | P.PN ---
Subjective Progress Note Date: 10/12/24 10-12-24 Principal diagnosis: left breast stage IA invasive ductal cancer [id number] Yissel is a 74-year-old white female seen in consultation for Dr. Ulloa regarding an ultrasound-guided core biopsy of the left breast which was positive for invasive ductal carcinoma in 2020. The lesion was approximately 1.2 cm in size. It was ER/TN positive and HER-2 negative. Yissel had a computed tomography scan done for surveillance secondary to the fact that she smokes 1 pack per day for 57 years. On the computed tomography scan an incidental finding of a lesion in the left breast was noted. She did not feel any lumps masses or nodules in either breast. The patient subsequently had a bilateral mammogram performed which revealed a lesion in the 2 o'clock position of the left breast. An ultrasound core biopsy was performed which was positive for invasive ductal carcinoma. Her last bilateral mammogram prior to that had been in approximately 2016. She subsequently underwent a left breast lumpectomy and sentinel node biopsy on 5420. The lesion was a T1 N0 M0 G2 ER positive TN positive HER-2 negative stage IA cancer. She completed radiation therapy on in September 2020. She is presently on arimidex and tolerating it well. She did not have any chemotherapy. Bilateral mammogram on 09-04-24 BIRAD 2 Recently diagnosed with DASHA lung adenoca, anastrazole on hold She is not complaining of any lumps masses or nodules of concern in either breast. She is taking Anastrazole without any concerns. note radiation oncology 08-16-24 reviewed planning on radiation for lung cancer note medical oncology 09-18-24 reviewed: recent diagnosis of lung cancer noted on LDCT; PET scan on 04-12-2024 showed suspicious uptake in 3 cm DASHA lung mass 1.2 cm mediastinal node, on 05-10-2024 bronchoscopic evaluation and FNA of 4 L and transbronchial biopsy of left upper lobe mass were positive for adenocarcinoma Patient on 06-20-2024 started carbo/alimta/Keytruda; declined surgery will have radiation and will be completed October 15, anastrazole on hold at this time Caffeine: One cup of coffee per day Nicotine: 1 pack per day Chocolate:occasional hormones: none, stopped 20 years ago Family History: mother: lung, and brain brother: colon sister: lung Hormonal History: menarche: 12 , breast fed: no, age at first : 17 menopause: partial hysterectomy for pre-cancer at 30 BCP: none hormones: short time less than 1 year Surgical History: Partial hysterectomy at 30 Cyst removed from right religious cataract surgery yesterday left eye, right eye done one month ago Medical history: arthritis Inhaler for breathing/ COPD Social History; smoke: 1 pack per day for approximately 57 years Alcohol: Negative Drugs: Negative - Constitutional Constitutional: Denies chills, Denies fever - EENT Eyes: denies blurred vision, denies pain Ears: deny: decreased hearing, tinnitus Ears, nose, mouth and throat: Denies headache, Denies sore throat - Breasts Breasts: bilateral: as per HPI - Cardiovascular Cardiovascular: Reports shortness of breath, Denies chest pain - Respiratory Comment: smoker: 1 PPD for 57 years - Gastrointestinal Gastrointestinal: Denies abdominal pain, Denies diarrhea, Denies nausea, Denies vomiting - Genitourinary (Female) Genitourinary: Denies dysuria, Denies hematuria - Menstruation Menstruation: Reports post hysterectomy - Musculoskeletal Comment: arthritis - Integumentary Integumentary: Denies pruritus, Denies rash - Neurological Neurological: Denies numbness, Denies weakness - Psychiatric Psychiatric: Reports anxiety, Reports depression - Endocrine Endocrine: Denies fatigue, Denies weight change - Hematologic/Lymphatic Comment: none - Allergic/Immunologic Allergic/Immunologic: Reports as per HPI Past Medical History Past Medical History: COPD, Osteoarthritis (OA) Additional Past Medical History / Comment(s): RECENT BRONCHITIS. History of Any Multi-Drug Resistant Organisms: None Reported Past Surgical History: Breast Surgery, Hysterectomy Additional Past Surgical History / Comment(s): BOTH BREAST BX-NEG. Past Anesthesia/Blood Transfusion Reactions: No Reported Reaction Past Psychological History: No Psychological Hx Reported Past Alcohol Use History: Occasional Additional Past Alcohol Use History / Comment(s): SMOKED SINCE 13, 1 PPD. Past Drug Use History: None Reported Objective - Vital Signs Vital signs: Vital Signs Temp 98.0 F 10/12/24 11:17 Pulse 59 L 10/12/24 11:17 Resp 17 10/12/24 11:17 BP 136/71 10/12/24 11:17 Pulse Ox 99 10/12/24 11:17 FiO2 Intake & Output 10/11/24 10/12/24 10/12/24 18:59 06:59 18:59 Weight 49.442 kg - Constitutional General appearance: Present: cooperative - EENT Eyes: Present: EOMI ENT: Present: hearing grossly normal - Neck Neck: Present: normal ROM - Respiratory Respiratory: bilateral: CTA - Cardiovascular Rhythm: regular Heart sounds: normal: S1, S2 - Integumentary Integumentary: Present: normal turgor - Musculoskeletal Musculoskeletal: Present: gait normal - Psychiatric Psychiatric: Present: A&O x's 3, appropriate affect, intact judgment & insight - Additional findings Additional findings: Breast examination: BRA: 34D Palpation: Right breast: Multi-positional exam no dominant masses or nodules of concern Right axilla: No adenopathy of concern Left breast: Multi-positional exam postoperative changes no dominant masses or nodules of concern, post surgical and radiation changes Left axilla: No adenopathy of concern Assessment and Plan Assessment: Impression: Patient status post left breast lumpectomy and sentinel node biopsy for stage IA invasive ductal carcinoma, no evidence of recurrent cancer Patient aromatase inhibitor on hold [facility] cancer DASHA Plan: Bilateral mammogram August 2025 with appointment at that time continue treatment with medical and radiation oncology CC: Dr. Bermeo
== END ==
LOC: WWCWWP 10:47
PROVIDERS: ATTEND Surgery
DX: C50.912 Malignant neoplasm of unspecified site of left female breast (principal); F17.200 Nicotine dependence, unspecified, uncomplicated; Z88.2 Allergy status to sulfonamides; Z98.890 Other specified postprocedural states